=== PATIENT | male | born 1980 | race Caucasian/White ===

== ENCOUNTER 2017-06-18 14:42 | Inpatient (IN) | payer MEDICAID, OTHER ==
[~2017-06-18] VITALS: Ht 188 cm; Wt 159.0 kg
[2017-06-18] MEDS ORDERED: SOD CHLORIDE 0.9% 1,000 ML IV STA (15:48)
[2017-06-18] MEDS ORDERED: ASPIRIN 81 MG TAB PO STA (15:48)
[2017-06-18] MEDS ORDERED: AZITHROMYCIN 500MG/NS (PMX) 250 ML IV STA (16:00)
[2017-06-18] MEDS ORDERED: CEFTRIAXONE 1 GM/50 ML (PMX) 50 ML IVPB STA (16:00)
[2017-06-18] MEDS ORDERED: ALBUTEROL 0.5% (NEB) 2.5 MG/0.5 ML AMP NEB STA (16:00)
[2017-06-18] MEDS ORDERED: HYDROmorphONE 1 MG/ML SYG IV STA (16:07)
--- NOTE | 2017-06-18 16:15 | RADRPT ---
PROCEDURE: XR Chest. CLINICAL INDICATION: Chest pain. TECHNIQUE: Single frontal chest x-ray. COMPARISON: None available FINDINGS: The lungs are clear. No focal opacification is seen. No pneumothorax or pleural effusion is seen. The cardiomediastinal silhouette is unremarkable. Left PICC has its tip in the SVC. The osseous st ructures are grossly unremarkable. IMPRESSION: 1. No evidence of acute cardiopulmonary disease. 2. Left PICC tip in the superior vena cava. RPTAT: JJ .Ryan Arceo MD, MD Date Time Electronically viewed and signed by .Ryan Arceo MD, on 06/18/2017 16:14 .A/
[2017-06-18] MEDS ORDERED: ASPI-664 PO (16:36)
[2017-06-18] MEDS ORDERED: ATOR40TA68 PO (16:36)
[2017-06-18] MEDS ORDERED: HYDR4TAB51 PO (16:39)
[2017-06-18] MEDS ORDERED: WARF10TA PO (16:39)
[2017-06-18] MEDS: HYDROmorphONE 1 MG/ML SYG IV PRN ×5 (16:39→21:13)
[2017-06-18] MEDS ORDERED: FOLI-49 PO (16:40)
[2017-06-18] MEDS ORDERED: HYDR500C3 PO (16:40)
[2017-06-18] MEDS ORDERED: OXYC40TA26 PO (16:41)
[2017-06-18] MEDS ORDERED: CLOP75TA27 PO (16:41)
[2017-06-18] MEDS ORDERED: QUET400T PO (16:42)
[2017-06-18 16:43] VITALS: TEMP 99.2
[2017-06-18] MEDS ORDERED: ALBUTEROL 0.5% (NEB) 2.5 MG/0.5 ML AMP INH STA (17:47)
[2017-06-18] MEDS ORDERED: DIPHENHYDRAMINE 50 MG INJ IV ONE (18:30)
--- NOTE | 2017-06-18 19:11 | ERD ---
ER Documentation Chief Complaint Chief Complaint SICKLE CELL WITH JOINT PAIN, CP, RESP DISTRESS. HX STROKE, NC X 2, MUTPL PE HPI 37-year-old male with a history of sickle cell disease, stroke, NC, acute chest syndrome, and multiple pulmonary emboli presenting to the ER complaining of diffuse chest pain, joint pain, and shortness of breath. He states he is originally from the [facility] but was down here for his mother's . His symptoms have been progressively worsening over the past few days. About 3 or 4 days ago, he developed hematemesis, so his doctor told him to stop his anticoagulants and go to the hospital. He did not come until today. He denies fevers or chills. He denies any history of asthma or COPD. Patient does endorse a history of upper GI bleed secondary to gastric ulcers. He had to undergo a GI procedure for this and had to stop his anticoagulants at that time. This was less than a year ago. However in November he was restarted on his anticoagulants. Of note, the patient currently has a PICC line in place as he is on vancomycin for avascular necrosis and possible infection of his right hip. ROS All systems reviewed and are negative except as per history of present illness. Medications Home Meds Reported Medications Quetiapine Fumarate* (Seroquel*) 400 Mg Tablet, 400 MG PO BID, TAB 06/18/17 Clopidogrel Bisulfate (Clopidogrel) 75 Mg Tablet, 75 MG PO DAILY, #30 TAB 06/18/17 Oxycodone Hcl* (Oxycontin*) 40 Mg Tab.er.12h, 40 MG PO Q12, TAB 06/18/17 Hydroxyurea* (Hydroxyurea*) 500 Mg Capsule, 500 MG PO TID, CAP 06/18/17 Folic Acid* (Folic Acid*) 1 Mg Tablet, 1 MG PO DAILY, TAB 06/18/17 Warfarin Sodium* (Coumadin*) 10 Mg Tablet, 10 MG PO DAILY, TAB 06/18/17 Hydromorphone Hcl* (Dilaudid*) 4 Mg Tablet, 4 MG PO NEEDED Y for PAIN, TAB OR TAKE 8MG FOR PAIN 06/18/17 Aspirin* (Aspirin* EC) 81 Mg Tablet.dr, 81 MG PO DAILY, TAB 06/18/17 Atorvastatin* (Atorvastatin*) 40 Mg Tablet, 40 MG PO QHS, #30 TAB 06/18/17 Allergies Allergies: Coded Allergies: morphine (Verified Allergy, Severe, anaphalactic, 06/18/17) ketorolac (Verified Allergy, Intermediate, rash/swelling, 06/18/17) metoclopramide (Verified Allergy, Intermediate, rash, body swelling, ) Uncoded Allergies: ZOFRAN (Allergy, Intermediate, rash, body swelling, 06/18/17) PMhx/Soc History of Surgery: Yes (Pleenectomy, appendectomy, port-A-Cath, R hip replacement.) Anesthesia Reaction: No Hx Neurological Disorder: Yes (Stroke 2014-R sided weakness.) Hx Respiratory Disorders: Yes (multiple PE) Hx Cardiac Disorders: Yes (CAD-NC- Stent X2) Hx Psychiatric Problems: Yes (Bi-Polar, anxiety) Hx Miscellaneous Medical Probl: Yes (Sickle Cell disease.) Hx Alcohol Use: No Hx Substance Use: No Hx Tobacco Use: No Smoking Status: Never smoker FmHx Family History: No diabetes Physical Exam Vitals Vital Signs Date Time Temp Pulse Resp B/P Pulse Ox O2 Delivery O2 Flow Rate FiO2 06/18/17 18:01 113 18 Nasal Cannula 2.0 98 06/18/17 16:43 99.2 121 26 128/106 98 6.0 06/18/17 16:19 2.0 06/18/17 16:19 110 18 Nasal Cannula 2.0 98 06/18/17 14:46 99.2 117 28 191/104 98 Physical Exam Const: Speaking in short sentences, and respiratory distress, audible wheezing, no diaphoresis. Sitting up in bed Head: Atraumatic Eyes: Normal Conjunctiva ENT: Normal External Ears, Nose and Mouth. Neck: Full range of motion..~ No meningismus. No JVD Resp: tachypneic, diffuse expiratory wheezing Cardio: Regular rate and rhythm, no murmurs Abd: Soft, non tender, non distended. Normal bowel sounds Skin: No petechiae or rashes Back: No midline or flank tenderness Ext: No cyanosis, bilateral lower extremity pitting edema Neur: Awake and alert, oriented 3, cranial nerves intact, strength grossly intact Psych: Normal Mood and Affect Result Diagram: 06/18/17 1620 06/18/17 1620 Results 24 hrs Laboratory Tests Test 06/18/17 16:00 06/18/17 16:05 06/18/17 16:20 06/18/17 16:36 Blood Gas Specimen Source Blood arterial Arterial Blood Date Drawn 06/18/2017 4:50:23 PM Arterial Blood pH (Temp corrected) 7.439 Arterial Blood pCO2 (Temp correct) 43.4mmhg Arterial Blood pO2 (Temp corrected) 81.0mmHG Arterial Blood HCO3 28.7mmol/L Arterial Blood Base Excess 4.1mmol/L Arterial Blood Oxygen Saturation 95.6mmHG Rafiq Test ACCEPTAB Arterial Blood Gas Puncture Site Left Radial Arterial Blood Carboxyhemoglobin 0.3% Arterial Blood Methemoglobin 0.4% Blood Gas A-a O2 Differential 60.2mmHg Oxyhemoglobin Percent 94.9% Total Hemoglobin 10.0g/dl Blood Gas Temperature 37.0C Blood Gas Modality NASAL CANNULA FiO2 27.0% Blood Gas Notified Whom MDA Blood Gas Notified Time 06/18/2017 4:54:47 PM Lactic Acid Level 2.0mmol/L White Blood Count 7.810^3/ul Red Blood Count 3.1510^6/ul Hemoglobin 8.5g/dl Hematocrit 27.1% Mean Corpuscular Volume 86.0fl Mean Corpuscular Hemoglobin 27.0pg Mean Corpuscular Hemoglobin Concent 31.4g/dl Red Cell Distribution Width 17.9% Platelet Count 88062^3/UL Mean Platelet Volume 10.6fl Neutrophils % 68.8% Segmented Neutrophils % (Manual) 68% Lymphocytes % 14.9% Lymphocytes % (Manual) 15% Monocytes % 7.7% Monocytes % (Manual) 7% Eosinophils % 7.9% Eosinophils % (Manual) 9% Basophils % 0.1% Metamyelocytes % (manual) 1% Nucleated Red Blood Cells % 0.3/100WBC Neutrophils # 5.410^3/ul Absolute Lymphocytes (Manual) 1.110^3/ul Lymphocytes # 1.210^3/ul Monocytes # 0.610^3/ul Absolute Monocytes (Manual) 0.510^3/ul Eosinophils # 0.610^3/ul Basophils # 0.010^3/ul Metamyelocytes # 0.010^3/ul Nucleated Red Blood Cells # 0.010^3/ul Platelet Estimate NORMAL Platelet Morphology Comment @See below Polychromasia 1+ Hypochromasia 2+ Anisocytosis 1+ Macrocytosis 1+ Absolute Reticulocyte Count 0.093X10^6 Percent Reticulocyte Count 3.0% Prothrombin Time 15.5Sec Prothrombin Time Ratio 1.2 INR International Normalized Ratio 1.22 Activated Partial Thromboplast Time 30.9Sec Sodium Level 144mmol/L Potassium Level 4.1mmol/L Chloride Level 100mmol/L Carbon Dioxide Level 31mmol/L Anion Gap 17 Blood Urea Nitrogen 14mg/dl Creatinine 0.89mg/dl Glucose Level 122mg/dl Calcium Level 9.3mg/dl Total Bilirubin 0.3mg/dl Direct Bilirubin 0.00mg/dl Indirect Bilirubin 0.3mg/dl Aspartate Amino Transf (AST/SGOT) 25IU/L Alanine Aminotransferase (ALT/SGPT) 40IU/L Alkaline Phosphatase 85IU/L Troponin I < 0.012ng/ml B-Type Natriuretic Peptide 29PG/ML Total Protein 7.4g/dl Albumin 4.1g/dl Globulin 3.30g/dl Albumin/Globulin Ratio 1.24 Urine Color STRAW Urine Clarity CLEAR Urine pH 7.0 Urine Specific [place] 1.008 Urine Ketones NEGATIVEmg/dL Urine Nitrite NEGATIVEmg/dL Urine Bilirubin NEGATIVEmg/dL Urine Urobilinogen NEGATIVEmg/dL Urine Leukocyte Esterase NEGATIVELeu/ul Urine Hemoglobin NEGATIVEmg/dL Urine Glucose NEGATIVEmg/dL Urine Total Protein NEGATIVEmg/dl Test 06/18/17 18:10 Lactic Acid Level 1.8mmol/L Current Medications Medications (Trade) Dose Ordered Sig/Nader Route PRN Reason Start Time Stop Time Status Last Admin Dose Admin Sodium Chloride (NS) 1,000 ml @ 1,000 mls/hr Q1H STAT IV 06/18/17 15:48 06/18/17 16:47 DC 06/18/17 16:27 Aspirin 162 mg 162 mg ONCE STAT PO 06/18/17 15:48 06/18/17 15:51 DC 06/18/17 16:26 Ceftriaxone Sodium 50 ml @ 100 mls/hr ONCE STAT IVPB 06/18/17 16:00 06/18/17 16:29 DC 06/18/17 16:28 Azithromycin (Zithromax 500mg/ NS (Pmx)) 250 ml @ 250 mls/hr ONCE STAT IV 06/18/17 16:00 06/18/17 16:59 DC 06/18/17 16:58 Albuterol (Proventil 0.5% (Neb)) 10 mg ONCE STAT NEB 06/18/17 16:00 06/18/17 16:04 DC 06/18/17 16:14 Hydromorphone HCl (Dilaudid) 1 mg ONCE STAT IV 06/18/17 16:07 06/18/17 16:08 DC 06/18/17 16:27 Hydromorphone HCl (Dilaudid) 1 mg Q10MIN PRN IV severe pain 06/18/17 16:30 06/18/17 19:15 Albuterol (Proventil 0.5% (Neb)) 10 mg ONCE STAT INH 06/18/17 17:47 06/18/17 17:49 DC 06/18/17 17:59 Diphenhydramine HCl (Benadryl) 25 mg ONCE ONCE IV 06/18/17 18:30 06/18/17 18:31 DC 06/18/17 19:16 Ondansetron HCl (Zofran Inj) 4 mg ER BRIDGE PRN IV NAUSEA AND/OR VOMITING 06/18/17 19:30 06/19/17 19:29 Acetaminophen 650 mg 650 mg ER BRIDGE PRN PO MILD PAIN/FEVER 06/18/17 19:30 06/19/17 19:29 Sodium Chloride (NS) 250 ml @ 0 mls/hr Q0M ONCE IV 06/18/17 19:34 06/18/17 19:36 DC IV Flush 10 ml 10 ml STK-MED ONCE .ROUTE 06/18/17 19:54 06/18/17 19:55 DC 06/18/17 20:14 Sodium Chloride 100 ml @ ud STK-MED ONCE .ROUTE 06/18/17 19:54 06/18/17 19:55 DC 06/18/17 20:15 Iohexol (Omnipaque) 100 ml @ ud STK-MED ONCE .ROUTE 06/18/17 19:54 06/18/17 19:55 DC 06/18/17 20:16 Iohexol (Omnipaque 350mg/ ml) 50 ml STK-MED ONCE .ROUTE 06/18/17 19:54 06/18/17 19:55 DC 06/18/17 20:16 Procedures/MDM EKG: Rate/Rhythm: Sinus tachycardia at 115 bpm QRS, ST, T-waves: [place] Q waves, no changes consistent w/ acute ischemia Impression: No evidence of ischemia or arrhythmia Chest x-ray: IMPRESSION: 1. No evidence of acute cardiopulmonary disease. 2. Left PICC tip in the superior vena cava. RPTAT: JJ .Ryan Arceo MD, Date Time Electronically viewed and signed by .Ryan Arceo MD, on 06/18/2017 16:14 CTPA: pending Labs: CBC :anemia Hgb 8.5 Retic count high CMP unremarkable BNP wnl Trop wnl MDM Patient is presenting with symptoms consistent with acute sickle cell crisis. Vitals were notable for tachypnea and tachycardia when he arrived without any evidence of hypoxia. Sepsis workup was initiated however I have a low suspicion for acute infection. Chest x-ray does not show evidence of acute chest syndrome. EKG and troponin are not indicative of acute NC. However the patient has a significant history of pulmonary emboli and is not currently on anticoagulation secondary to his GI bleed. CTPA was ordered. Patient did not want to start anticoagulation until the results of the CT were back. Med-Neb treatments were given with significant improvement of his shortness of breath and wheezing. 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 He will likely also need another endoscopy with his recent history of hematemesis. Dose of IV Protonix was given. Patient will be admitted to telemetry for further workup and monitoring. Critical Care Time: 35 minutes Treatments/Evaluations: Close monitoring and treatment of unstable vital signs, cardiorespiratory, and neurologic status, while maintaining tight balance of fluid, respiratory, and cardiac interventions. This time includes discussing the case with the patient and the patients family. This time does not include all procedures stated elsewhere in this record. This time also includes reviewing old records, labs and radiological studies. This time includes examining and re-examining the patient. Additionally, this time also includes arranging care with admitting and consulting physicians. Accepting Care Team: Current data and ongoing care discussed. Time: Time of admission Primary Provider: Cam Outstanding Data: CT pulmonary angiogram Departure Diagnosis: Primary Impression: Sickle cell crisis Additional Impressions: Bronchospasm History of pulmonary embolism GI bleed GI bleed type/associated pathology: unspecified gastrointestinal hemorrhage type Qualified Code: K92.2 - Gastrointestinal hemorrhage, unspecified gastrointestinal hemorrhage type Condition: Serious YOLANDA ALVAREZ MD Jun 18, 2017 19:10
[2017-06-18] MEDS ORDERED: ONDANSETRON 4 MG INJ IV PRN ×2 (19:30→23:00)
[2017-06-18] MEDS ORDERED: ACETAMINOPHEN 325 MG TAB PO PRN ×2 (19:30→23:00)
[2017-06-18] MEDS ORDERED: SOD CHLORIDE 0.9% 250 ML IV ONE (19:34)
[2017-06-18] MEDS ORDERED: IOHEXOL 350MG/ML 50 ML BTL ONE (19:54)
[2017-06-18] MEDS ORDERED: SOD CHLORIDE 0.9% 100 ML ONE (19:54)
[2017-06-18] MEDS ORDERED: IOHEXOL 100 ML ONE (19:54)
[2017-06-18] MEDS ORDERED: HYDROmorphONE 2 MG/ML SYG IV STA (21:00)
[2017-06-18] MEDS ORDERED: PANTOPRAZOLE 40 MG INJ IV ONE (21:00)
--- NOTE | 2017-06-18 21:06 | RADRPT ---
PROCEDURE: CTA chest pulmonary angiography. CLINICAL INDICATION: Hemoptysis. Chest pain. TECHNIQUE: CT angiography of the chest was performed after the uneventful intravenous administratio n of 125 cc of Omnipaque 350. Coronal and sagittal reformations were performed. 3-D/multiplanar re formations were performed by the technologist and an independent workstation. The total exam CTDI = 7.07, 79.77, 24.31 mGy and the DLP equals 950.81 mGy-cm. Evaluation is markedly limited due to contr ast bolus timing. Evaluation is also partially limited due to the patient's body habitus and associa ricardo quantum mottle artifact. One or more of the following dose reduction techniques were used: - Automated exposure control. - Adjustment of the mA and/or kV according to patient size. - Use of iterative reconstruction technique. COMPARISON: Chest x-ray dated 06/18/2017. FINDINGS: Pulmonary angiogram: There is no large, centrally obstructing embolus. A more distal embolus is not excluded. The main pulmonary artery is normal in caliber and there is no evidence of right heart st rain. Lungs, pleura, airways, and thoracic inlet: There is nonspecific peripheral ground-glass opacity in the anterior right upper lobe. There is subsegmental atelectasis versus scarring in the lingula. Th ere is no focal consolidation, effusion, or pneumothorax. There are no concerning pulmonary nodules or masses. The tracheobronchial tree is patent and normal in course and caliber. Cardiovascular system, mediastinum, and lymphatics: The heart is normal in size without pericardial thickening or effusion. The aorta is nonaneurysmal. There is no hilar or mediastinal adenopathy. Visualized upper abdomen: There is diffuse fatty infiltration of the visualized liver. The gallblad neal is surgically absent. Musculoskeletal system and soft tissues: There are no concerning osseous lesions. There is a 2.3 c m focus of hyperdensity in the ventral right mid chest subcutaneous fat, which is nonspecific. IMPRESSION: 1. Markedly limited examination due to contrast bolus timing demonstrates no large, centrally obstr ucting embolus. A more distal embolus is not excluded. If clinical concern for PE remains, consider reevaluation versus VQ scan. 2. Nonspecific peripheral ground-glass opacity in the anterior right upper lobe, which given the pat ients symptoms, may reflect alveolar hemorrhage. Early infection or pulmonary infarct could also hav e this appearance. 3. Nonspecific 2.3 cm hyperdense focus in the ventral right mid chest subcutaneous fat. Clinical co rrelation is recommended. RPTAT: HLBP .Moisés Garcia MD, Date Time Electronically viewed and signed by .Moisés Garcia MD, on 06/18/2017 21:06 .P/
[2017-06-18] MEDS ORDERED: VANCOMYCIN 1.25 GM in SOD CHLORIDE 0.9% 250 ML IVPB SCH (23:00)
[2017-06-18] MEDS ORDERED: NACL 0.9% 3 ML SYG IV SCH (23:00)
[2017-06-18] MEDS ORDERED: VANCOMYCIN IV PER PHARMACY XX SCH (23:00)
[2017-06-18] MEDS ORDERED: BISACODYL (EC) 5 MG TAB PO PRN (23:00)
[2017-06-18] MEDS ORDERED: DOCUSATE SODIUM 100 MG CAP PO PRN (23:00)
[2017-06-18 23:44] VITALS: PULSE 101
--- NOTE | 2017-06-18 23:46 | HP ---
Date/Time of Note Date/Time of Note DATE: 06/18/17 TIME: 23:45 Assessment/Plan VTE Prophylaxis VTE Prophylaxis Intervention: contraindicated VTE Contraindication Reason: bleeding Lines/Catheters IV Catheter Type (from Nrsg): PICC Line Central line still needed: Yes (abx) Assessment/Plan Chief Complaint/Hosp Course This is a 37-year-old male being admitted to the telemetry floor for: #1 suspected sickle cell crisis: Patient does not appear to be actively sickling based on his blood work. However he does state that he has chest pain as well as joint pain and pain in his hip. He has been requesting Dilaudid in the ED for his pain. Based on his history at the current time I will treat him for suspected sickle cell crisis though I am not 100% convinced that he is in a crisis at this time.. Will put him on Dilaudid 2 mg every 2 hours. I put him on Benadryl for itching. I will also resume his home hydroxyurea. He was requesting a higher dose Dilaudid 3 mg which was on his hospital admission information from [facility] however at the current time I will start out lower and go up as indicated. Based on his respiratory symptoms I feel more likely that he may be having a possible respiratory illness possibly viral. however based on his history we will treat him also for possible sickle cell crisis. Will also put on IV fluid hydration with normal saline. His chest x- ray was within normal values. Lactate is currently in acceptable values. Will consult hematology as well as pulmonology. Will continue antibiotics at the current time secondary to his splenectomy as well as possible respiratory infection. #2 Chest pain: PE versus acute chest syndrome versus respiratory illness: At the current time a CT of the chest did not show any overt signs of central pulmonary emboli though the study was limited for distal emboli. He does not have any fevers at this time and is hemodynamically stable and are no signs of any focal infection or consolidation which make acute chest syndrome less likely at this time. Patient does report a cough productive of phlegm which could represent a possible respiratory illness. CT of the chest did show:n onspecific peripheral ground-glass opacity in the anterior right upper lobe, which given the patients symptoms, may reflect alveolar hemorrhage. Early infection or pulmonary infarct could also have this appearance. At the current time we will treat with duo nebs every 4 hours. I will also consult pulmonology for further evaluation especially in the setting of possible pulmonary infarct or alveolar hemorrhage. Of note on the CT scan of the chest there is no signs of right heart strain, making my suspicion less likely for PE. He did receive a dose of ceftriaxone and azithromycin and I will continue this for now given his history of splenectomy/sickle cell disease. 2D echo in the a.m. #3 hematemesis: Patient reports vomiting of bright red blood. At the current time his hemoglobin is 8.5 and on recheck it was 8.5 again. Will trend his hemoglobin every 6 hours. Will monitor him closely. I will put him on Protonix twice daily. Will consult GI. Patient did report a history of previous gastric ulcers. He is currently not on anticoagulation for the past few days secondary to his hematemesis. Will hold aspirin and Plavix at this time. #3 history of venous thromboembolism: Patient has a history of multiple DVTs and PEs. He was on anticoagulation of Coumadin at the current time however he did stop a few days ago secondary to hematemesis. Patient does present as a high risk for venous thrombus embolism however at the current time secondary to his hematemesis and no signs of any overt central PE on CAT scan I will hold off on continuing anticoagulation at this time. I will consult hematology for further assistance as well as pulmonology. Will also consult interventional radiology for possible IVC filter placement given patient's history. Also order bilateral lower extremity ultrasound. #4 sickle cell disease: Patient has a history of acute chest syndrome multiple DVTs in the past. Patient hemoglobin goal is reportedly above 9. At the current time is 8.5. 1 unit of packed red blood cells was ordered in the ED. Will continue to follow hemoglobin. Continue hydroxyurea. will consult hematology for further assistance #5 normocytic anemia: Secondary to #4. Will transfuse 1 unit PRBC #3 #6 coronary artery disease: Patient is status post NH 2 however he does not report any stent placement. He is currently on Plavix as well. I will hold the Plavix at this time. Will consult cardiology as well for further guidance. #7 Bipolar disorder: Continue Seroquel #8 history of avascular necrosis of the right hip: Patient reports that he has been taking vancomycin as he developed an infection of the hardware in his right hip that was placed after he had avascular necrosis. Will try to obtain records regarding this. He states that he is on 1250 mg of vancomycin twice daily for approximately 6 weeks. I will start him on vancomycin pharmacy to dose. Will consult ID for further assistance in this matter. Will also obtain x-ray of his right hip. And will consider an orthopedic consult. #9 chronic left lower extremity edema: Patient has mild trace to 1+ pitting edema of the left lower extremity. Will obtain an echocardiogram. Patient states that he has had issues with this for quite some time now secondary to DVTs. Will order bilateral lower extremity ultrasound as well. #10 DVT GI prolapse: Currently mechanical and chemical prophylaxis is contraindicated secondary to patient's bleeding as well as possible lower extremity DVTs. Will order bilateral lower extremity ultrasound to rule out DVTs once a rule out and we can start on mechanical DVT prophylaxis. Protonix for GI prophylaxis. Further treatment strategy will be implemented as per the clinical course Problems: HPI/ROS Admit Date/Time Admit Date/Time Jun 18, 2017 at 19:31 Hx of Present Illness cc: chest pain 37-year-old male with a history of sickle cell disease, stroke, NH, acute chest syndrome, and multiple pulmonary emboli presenting to the ER complaining of diffuse chest pain, joint pain, and shortness of breath as well as a cough. Patient states that his cough has been productive of green phlegm. He states he is originally from the [place] area but was down here for his mother's . His symptoms have been progressively worsening over the past few days. About 3 or 4 days ago, he developed hematemesis, so his doctor told him to stop his anticoagulants and go to the hospital. His last episode of hematemesis was earlier today. He did not come until today. He denies fevers or chills. He denies any history of asthma or COPD. Patient does endorse a history of upper GI bleed secondary to gastric ulcers. He had to undergo a GI procedure for this and had to stop his anticoagulants at that time. This was less than a year ago. However in November he was restarted on his anticoagulants. Patient also is very insistent on receiving Dilaudid and he was showing me orders from his previous admission at [facility] in December 2016 specifically requesting Dilaudid and Benadryl. He also reports some chronic left lower extremity swelling. He reports that for his hemoglobin the goal for him is to stay between 9 and 10. Of note, the patient currently has a PICC line in place as he is on vancomycin for avascular necrosis and possible infection of his right hip. He states he is receiving 1250 mg twice daily. allergies: zofran, ketorolac, reglan, morphine Medications: See MAR ROS Const: As per HPI Eyes : No pain discharge or redness or change in visual acuity ENT: No pain, sore throat, congestion, congestion, dysphagia or discharge Respiratory: As per HPI Cardiovascular: As per HPI GI : no change in appetite, abdominal pain, nausea, vomiting, diarrhea, constipation, or change in the color his stool Genitourinary: No dysuria, hematuria, flank pain , discharge or CVA tenderness Musculoskeletal: No joint pain, back pain, neck pain, restricted range of motion in neck or joints Skin: As per HPI Neuro: No headache, dizziness, syncope, seizure, focal weakness Endocrine: No polyuria, polydipsia, temperature intolerance Psych: No hallucination, depression, anxiety or suicidal ideation PMH/Family/Social Past Medical History Sickle cell disease, NH 2, history of PEs, history of DVTs, bipolar disorder, avascular necrosis of the right hip status post infection of hardware currently on antibiotics Past Surgical History Splenectomy, appendectomy, right hip surgery for avascular necrosis Family History Significant Family History: no pertinent family hx Social History Alcohol Use: none Smoking Status: Never smoker Drug Use: none Exam/Review of Systems Vital Signs Vitals Vital Signs Date Time Temp Pulse Resp B/P Pulse Ox O2 Delivery O2 Flow Rate FiO2 06/18/17 22:48 109 16 147/96 97 6.0 06/18/17 18:01 Nasal Cannula 98 06/18/17 16:43 99.2 Exam Exam General: Patient is an obese male sitting on the wheelchair in mild respiratory distress HEENT: Atraumatic, normocephalic. The pupils are equal, round and reactive. Extraocular motor are intact Neck: Supple with full range of motion. No rigidity or meningismus Chest: Nontender Lungs: Bilateral coarse breath sounds with mild expiratory wheezing, cough currently not productive Heart: Normal S1-S2, Regular rhythm and rate. Abdomen: Soft , nontender, nondistended , bowel sounds are present. No guarding no rebound tenderness , No masses or organomegaly. No costovertebral temporal angle mass Extremities: Tenderness to the right lateral hip, no warmth. Patient is currently in a wheelchair. Neurologic: Normal mental status, speech normal, cranial nerves II through XII are intact, motor and sensory are intact, no focal weakness Additional Comments PROCEDURE: CTA chest pulmonary angiography. CLINICAL INDICATION: Hemoptysis. Chest pain. TECHNIQUE: CT angiography of the chest was performed after the uneventful intravenous administration of 125 cc of Omnipaque 350. Coronal and sagittal reformations were performed. 3-D/multiplanar reformations were performed by the technologist and an independent workstation. The total exam CTDI = 7.07, 79.77, 24.31 mGy and the DLP equals 950.81 mGy-cm. Evaluation is markedly limited due to contrast bolus timing. Evaluation is also partially limited due to the patient's body habitus and associated quantum mottle artifact. One or more of the following dose reduction techniques were used: - Automated exposure control. - Adjustment of the mA and/or kV according to patient size. - Use of iterative reconstruction technique. COMPARISON: Chest x-ray dated 06/18/2017. FINDINGS: Pulmonary angiogram: There is no large, centrally obstructing embolus. A more distal embolus is not excluded. The main pulmonary artery is normal in caliber and there is no evidence of right heart strain. Lungs, pleura, airways, and thoracic inlet: There is nonspecific peripheral ground-glass opacity in the anterior right upper lobe. There is subsegmental atelectasis versus scarring in the lingula. There is no focal consolidation, effusion, or pneumothorax. There are no concerning pulmonary nodules or masses. The tracheobronchial tree is patent and normal in course and caliber. Cardiovascular system, mediastinum, and lymphatics: The heart is normal in size without pericardial thickening or effusion. The aorta is nonaneurysmal. There is no hilar or mediastinal adenopathy. Visualized upper abdomen: There is diffuse fatty infiltration of the visualized liver. The gallbladder is surgically absent. Musculoskeletal system and soft tissues: There are no concerning osseous lesions. There is a 2.3 cm focus of hyperdensity in the ventral right mid chest subcutaneous fat, which is nonspecific. IMPRESSION: 1. Markedly limited examination due to contrast bolus timing demonstrates no large, centrally obstructing embolus. A more distal embolus is not excluded. If clinical concern for PE remains, consider reevaluation versus VQ scan. 2. Nonspecific peripheral ground-glass opacity in the anterior right upper lobe , which given the patients symptoms, may reflect alveolar hemorrhage. Early infection or pulmonary infarct could also have this appearance. 3. Nonspecific 2.3 cm hyperdense focus in the ventral right mid chest subcutaneous fat. Clinical correlation is recommended. RPTAT: HLBP .Moisés Garcia MD, MD Date Time Electronically viewed and signed by .Moisés Garcia MD, MD on 06/18/2017 21:06 .P/ CC: YOLANDA ALVAREZ MD PROCEDURE: XR Chest. CLINICAL INDICATION: Chest pain. TECHNIQUE: Single frontal chest x-ray. COMPARISON: None available FINDINGS: The lungs are clear. No focal opacification is seen. No pneumothorax or pleural effusion is seen. The cardiomediastinal silhouette is unremarkable. Left PICC has its tip in the SVC. The osseous structures are grossly unremarkable. IMPRESSION: 1. No evidence of acute cardiopulmonary disease. 2. Left PICC tip in the superior vena cava. RPTAT: JJ .Ryan Arceo MD, MD Date Time Electronically viewed and signed by .Ryan Arceo MD, MD on 06/18/2017 16:14 .A/ CC: YOLANDA ALVAREZ MD Labs Result Diagram: 06/18/17 1620 06/18/17 1620 Medications Medications Current Medications Ondansetron HCl (Zofran Inj) 4 mg Q6H PRN IV NAUSEA AND/OR VOMITING; Start 06/18/17 at 23:00 Acetaminophen (Tylenol Tab) 650 mg Q6H PRN PO PAIN LEVEL 1-3 OR FEVER; Start 06/18/17 at 23:00 Hydromorphone HCl (Dilaudid) 2 mg Q2H PRN IV PAIN LEVEL 7-10; Start 06/18/17 at 23:00 Docusate Sodium (Colace) 100 mg Q12H PRN PO CONSTIPATION; Start 06/18/17 at 23: 00 Bisacodyl (Dulcolax) 5 mg DAILY PRN PO CONSTIPATION; Start 06/18/17 at 23:00 Pantoprazole (Protonix Iv) 40 mg BID@06,18 IV ; Start 06/18/17 at 23:00 Vancomycin HCl PER PHARMACY DOSING NOTE XX ; Start 06/18/17 at 23:00 Vancomycin HCl/ Sodium Chloride (Vancocin/NS) 250 ml @ 83.333 mls/ hr Q12H IVPB ; Start 06/18/17 at 23:00 Hydromorphone HCl (Dilaudid) 1 mg Q2H PRN IV severe pain ; Start 06/19/17 at 01 :00 Folic Acid (Folic Acid) 1 mg DAILY PO ; Start 06/19/17 at 09:00; Status UNV Hydroxyurea (Hydrea) 500 mg TID PO ; Start 06/19/17 at 09:00; Status UNV Quetiapine Fumarate (Seroquel) 400 mg BID PO ; Start 06/19/17 at 09:00; Status UNV Diphenhydramine HCl 50 mg 50 mg Q6H PRN IM ITCHING; Start 06/19/17 at 00:00; Status UNV Sodium Chloride (NS) 1,000 ml @ 125 mls/hr Q8H IV ; Start 06/19/17 at 00:00; Status UNV EV CARPIO Jun 18, 2017 23:46
[2017-06-19] VITALS (12 sets, daily range): BP systolic 118–147; BP diastolic 57–94; PULSE 95–105; RESP 18–20; Ht 188 cm; Wt 159.0 kg
[2017-06-19] MEDS ORDERED: SOD CHLORIDE 0.9% 1,000 ML IV SCH
[2017-06-19] MEDS: DIPHENHYDRAMINE 50 MG INJ IM PRN ×3 (00:59→15:14)
[2017-06-19] MEDS: HYDROmorphONE 2 MG/ML SYG IV PRN ×12 (00:59→23:28)
[2017-06-19] MEDS ORDERED: HYDROmorphONE 1 MG/ML SYG IV PRN (01:00)
[2017-06-19] MEDS: ALBUTEROL/IPRATROPIUM (NEB) 3 ML AMP HHN SCH ×6 (01:00→21:32)
[2017-06-19] MEDS: PANTOPRAZOLE 40 MG INJ IV SCH ×2 (01:04→05:08)
[2017-06-19] MEDS ORDERED: DIPHENHYDRAMINE 50 MG INJ IV PRN (01:30)
[2017-06-19] MEDS ORDERED: AZITHROMYCIN 500MG/NS (PMX) 250 ML IVPB SCH ×2 (06:00→16:00)
[2017-06-19] MEDS ORDERED: CEFTRIAXONE 1 GM/50 ML (PMX) 50 ML IVPB SCH ×2 (07:00→17:00)
[2017-06-19] MEDS: FOLIC ACID 1 MG TAB PO SCH (09:00)
[2017-06-19] MEDS: HYDROXYUREA 500 MG CAP PO SCH ×3 (09:00→19:48)
[2017-06-19] MEDS ORDERED: DIPHENHYDRAMINE 50 MG CAP PO PRN ×2 (09:00→19:00)
[2017-06-19] MEDS: QUETIAPINE 100 MG TAB PO SCH ×2 (09:04→19:49)
--- NOTE | 2017-06-19 10:03 | RADRPT ---
PROCEDURE: US bilateral lower extremity veins. CLINICAL INDICATION: Bilateral leg pain and swelling. TECHNIQUE: Multiple longitudinal and transverse images of the bilateral lower extremity veins were obtained with ibanez scale and color Doppler imaging. The common femoral vein, femoral vein, and popl iteal vein were evaluated. 2D grayscale measurements with compression sonography, color Doppler, and pulsed Doppler with augmentation. COMPARISON: No prior studies are available for comparison. FINDINGS: The bilateral common femoral, femoral and popliteal veins are normally compressible throughout. Col or flow demonstrates normal filling of the vessels. Normal waveforms are visualized and there is no rmal response to augmentation. IMPRESSION: 1. No evidence of deep vein thrombosis involving either lower extremity. RPTAT: QQ .Robert Greene MD, MD Date Time Electronically viewed and signed by .Robert Greene MD, on 06/19/2017 10:03 .R/
[2017-06-19] MEDS: SOD CHLORIDE 0.45% 1,000 ML IV SCH ×2 (10:30→18:30)
--- NOTE | 2017-06-19 11:38 | CONS ---
Date/Time of Note Date/Time of Note DATE: 06/19/17 TIME: 11:35 Assessment/Plan Assessment/Plan Additional Assessment/Plan Chest x-ray was reviewed which is essentially unremarkable. CT chest with contrast also is essentially negative. Assessment and recommendations; 1. Patient admitted with nonspecific chest pain with interval resolution. Possibly some element of sickle cell crisis. 2. Currently no evidence of any infective process. Discontinue antibiotics. Continue IV hydration. Monitor hematocrit. Consultation Date/Type/Reason Admit Date/Time Jun 18, 2017 at 19:31 Date of Consultation: Jun 19, 2017 Type of Consultation: Pulmonary Reason for Consultation Pulmonary consultation requested for evaluation of chest pain. History of presenting illness; patient is a 37-year-old male who came into the emergency room with complaints of chest pain going on for the last day or so. The pain is brought on by certain movements and coughing. Patient denies any abdominal pain, nausea vomiting or diaphoresis. Also denies any wheezing or any sputum production. Denies any hemoptysis. By the time I saw the patient the patient is feeling much better with almost complete resolution of chest pain. Next Past medical history; 1. Patient with history of sickle cell disease. 2. History of recurrent lower extremity DVT and history of pulmonary embolism. 3. History of chronic lower extremity edema. 4. History of right hip avascular necrosis. Medications; reviewed. Allergies; or to multiple medications as outlined above. Social history; patient has never smoked. No history of drug abuse. Family history; noncontributory. Occupational history; patient is on disability. General exam; young male, awake alert, currently in no distress. Appears morbidly obese. Social History Alcohol Use: none Smoking Status: Former smoker Drug Use: none Exam/Review of Systems Vital Signs Vitals Vital Signs Date Time Temp Pulse Resp B/P Pulse Ox O2 Delivery O2 Flow Rate FiO2 06/19/17 08:15 95 06/19/17 07:41 98.1 19 122/57 94 06/18/17 22:48 6.0 06/18/17 18:01 Nasal Cannula 98 Intake and Output 06/18/17 06/18/17 06/19/17 15:00 23:00 07:00 Intake Total 1425 ml Output Total 1600 ml Balance -175 ml Exam HEENT exam; supple neck, no JVD. No lymphadenopathy. Midline trachea. No thyromegaly. Pharynx is clear. Pupils are midsize and reactive to light. Chest exam; clear to auscultation. Nontender. S1-S2 audible, no murmurs. Regular rhythm. Abdomen exam; soft, grossly protuberant. No organomegaly. Bowel sounds audible. Nontender. Extremity exam; chronic appearing bilateral lower extremity 1+ edema. No clubbing. 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 Results Result Diagram: 06/19/17 0800 06/19/17 0800 Results 24 hrs Laboratory Tests Test 06/18/17 16:00 06/18/17 16:05 06/18/17 16:20 06/18/17 16:36 Blood Gas Specimen Source Blood arterial Arterial Blood Date Drawn 06/18/2017 4:50:23 PM Arterial Blood pH (Temp corrected) 7.439 Arterial Blood pCO2 (Temp correct) 43.4 Arterial Blood pO2 (Temp corrected) 81.0 Arterial Blood HCO3 28.7 H Arterial Blood Base Excess 4.1 H Arterial Blood Oxygen Saturation 95.6 Rafiq Test ACCEPTAB Arterial Blood Gas Puncture Site Left Radial Arterial Blood Carboxyhemoglobin 0.3 Arterial Blood Methemoglobin 0.4 Blood Gas A-a O2 Differential 60.2 H Oxyhemoglobin Percent 94.9 Total Hemoglobin 10.0 L Blood Gas Temperature 37.0 Blood Gas Modality NASAL CANNULA FiO2 27.0 Blood Gas Notified Whom MDA Blood Gas Notified Time 06/18/2017 4:54:47 PM Lactic Acid Level 2.0 White Blood Count 7.8 Red Blood Count 3.15 L Hemoglobin 8.5 L Hematocrit 27.1 L Mean Corpuscular Volume 86.0 Mean Corpuscular Hemoglobin 27.0 L Mean Corpuscular Hemoglobin Concent 31.4 L Red Cell Distribution Width 17.9 H Platelet Count 265 Mean Platelet Volume 10.6 H Neutrophils % 68.8 Segmented Neutrophils % (Manual) 68 Lymphocytes % 14.9 L Lymphocytes % (Manual) 15 Monocytes % 7.7 Monocytes % (Manual) 7 Eosinophils % 7.9 H Eosinophils % (Manual) 9 H Basophils % 0.1 Metamyelocytes % (manual) 1 H Nucleated Red Blood Cells % 0.3 H Neutrophils # 5.4 Absolute Lymphocytes (Manual) 1.1 Lymphocytes # 1.2 Monocytes # 0.6 Absolute Monocytes (Manual) 0.5 Eosinophils # 0.6 H Basophils # 0.0 Metamyelocytes # 0.0 Nucleated Red Blood Cells # 0.0 Platelet Estimate NORMAL Platelet Morphology Comment @See below Polychromasia 1+ Hypochromasia 2+ Anisocytosis 1+ Macrocytosis 1+ Absolute Reticulocyte Count 0.093 Percent Reticulocyte Count 3.0 H Prothrombin Time 15.5 H Prothrombin Time Ratio 1.2 INR International Normalized Ratio 1.22 Activated Partial Thromboplast Time 30.9 Sodium Level 144 Potassium Level 4.1 Chloride Level 100 Carbon Dioxide Level 31 Anion Gap 17 H Blood Urea Nitrogen 14 Creatinine 0.89 Glucose Level 122 Calcium Level 9.3 Total Bilirubin 0.3 Direct Bilirubin 0.00 Indirect Bilirubin 0.3 Aspartate Amino Transf (AST/SGOT) 25 Alanine Aminotransferase (ALT/SGPT) 40 Alkaline Phosphatase 85 Troponin I < 0.012 B-Type Natriuretic Peptide 29 Total Protein 7.4 Albumin 4.1 Globulin 3.30 H Albumin/Globulin Ratio 1.24 Urine Color STRAW Urine Clarity CLEAR Urine pH 7.0 Urine Specific [place] 1.008 Urine Ketones NEGATIVE Urine Nitrite NEGATIVE Urine Bilirubin NEGATIVE Urine Urobilinogen NEGATIVE Urine Leukocyte Esterase NEGATIVE Urine Hemoglobin NEGATIVE Urine Glucose NEGATIVE Urine Total Protein NEGATIVE Test 06/18/17 18:10 06/19/17 01:04 06/19/17 07:25 06/19/17 08:00 Lactic Acid Level 1.8 2.0 White Blood Count 7.9 5.9 # Red Blood Count 3.18 L 2.99 L Hemoglobin 8.5 L 7.8 L Hematocrit 27.0 L 25.3 L Mean Corpuscular Volume 84.9 84.6 Mean Corpuscular Hemoglobin 26.7 L 26.1 L Mean Corpuscular Hemoglobin Concent 31.5 L 30.8 L Red Cell Distribution Width 18.0 H 18.1 H Platelet Count 268 231 Mean Platelet Volume 11.4 H 11.9 H Neutrophils % 68.3 64.2 Lymphocytes % 16.4 17.0 Monocytes % 7.7 8.8 Eosinophils % 7.1 H 9.3 H Basophils % 0.1 0.2 Nucleated Red Blood Cells % 0.3 H 0.0 Neutrophils # 5.4 3.8 Lymphocytes # 1.3 1.0 Monocytes # 0.6 0.5 Eosinophils # 0.6 H 0.6 H Basophils # 0.0 0.0 Nucleated Red Blood Cells # 0.0 0.0 Creatine Kinase 789 H 708 H Creatine Kinase Index 0.4 0.4 Creatinine Kinase MB (Mass) 3.31 H 2.51 H Troponin I < 0.012 < 0.012 Urine Opiates Screen Positive Urine Barbiturates Negative Urine Amphetamines Screen Negative Urine Benzodiazepines Screen Positive Urine Cocaine Screen Negative Urine Cannabinoids Negative Sodium Level 141 Potassium Level 4.3 Chloride Level 101 Carbon Dioxide Level 28 Anion Gap 16 Blood Urea Nitrogen 13 Creatinine 0.83 Glucose Level 119 Hemoglobin A1c 6.2 H Calcium Level 8.6 Magnesium Level 1.9 Total Bilirubin 0.3 Direct Bilirubin 0.00 Indirect Bilirubin 0.3 Aspartate Amino Transf (AST/SGOT) 26 Alanine Aminotransferase (ALT/SGPT) 34 Alkaline Phosphatase 73 Total Protein 6.7 Albumin 3.7 Globulin 3.00 Albumin/Globulin Ratio 1.23 Thyroid Stimulating Hormone (TSH) Pending Medications Medications Current Medications Ondansetron HCl (Zofran Inj) 4 mg Q6H PRN IV NAUSEA AND/OR VOMITING; Start 06/18/17 at 23:00 Acetaminophen (Tylenol Tab) 650 mg Q6H PRN PO PAIN LEVEL 1-3 OR FEVER; Start 06/18/17 at 23:00 Docusate Sodium (Colace) 100 mg Q12H PRN PO CONSTIPATION; Start 06/18/17 at 23: 00 Bisacodyl (Dulcolax) 5 mg DAILY PRN PO CONSTIPATION; Start 06/18/17 at 23:00 Pantoprazole (Protonix Iv) 40 mg BID@06,18 IV Last administered on 06/19/17 05 :08; Admin Dose 40 MG; Start 06/18/17 at 23:00 Vancomycin HCl PER PHARMACY DOSING NOTE XX ; Start 06/18/17 at 23:00 Vancomycin HCl/ Sodium Chloride (Vancocin/NS) 250 ml @ 83.333 mls/ hr Q12H IVPB Last administered on 06/19/17 01:05; Admin Dose 83.333 MLS/HR; Start 06/18/17 at 23:00 Hydromorphone HCl (Dilaudid) 1 mg Q2H PRN IV severe pain ; Start 06/19/17 at 01 :00 Folic Acid (Folic Acid) 1 mg DAILY PO ; Start 06/19/17 at 09:00 Hydroxyurea (Hydrea) 500 mg TID PO ; Start 06/19/17 at 09:00 Quetiapine Fumarate (Seroquel) 400 mg BID PO Last administered on 06/19/17 09: 04; Admin Dose 400 MG; Start 06/19/17 at 09:00 Diphenhydramine HCl 50 mg 50 mg Q6H PRN IM ITCHING Last administered on 08:53; Admin Dose 50 MG; Start 06/19/17 at 00:00 Ceftriaxone Sodium (Rocephin) 50 ml @ 100 mls/hr Q24H IVPB ; Start 06/19/17 at 17:00 Diphenhydramine HCl 50 mg 50 mg Q6H PRN PO ITCHING; Start 06/19/17 at 09:00 Sodium Chloride (1/2 NS) 1,000 ml @ 125 mls/hr Q8H IV ; Start 06/19/17 at 10:30 Hydromorphone HCl (Dilaudid) 4 mg Q2H PRN IV PAIN LEVEL 7-10; Start 06/19/17 at 11:00 Azithromycin (Zithromax) 500 mg DAILY PO ; Start 06/19/17 at 12:00 JENNY DIOR Jun 19, 2017 11:38
[2017-06-19] MEDS ORDERED: AZITHROMYCIN 250 MG TAB PO SCH (12:00)
[2017-06-19] MEDS ORDERED: VANCOMYCIN IV PER PHARMACY XX SCH (12:30)
--- NOTE | 2017-06-19 12:30 | PN ---
Date/Time of Note Date/Time of Note DATE: 06/19/17 TIME: 12:01 Assessment/Plan VTE Prophylaxis VTE Prophylaxis Intervention: SCD's Lines/Catheters IV Catheter Type (from Nrsg): PICC Line Central line still needed: Yes Urinary Cath still in place: No Assessment/Plan Assessment/Plan 37 yo M with sickle cell presents with joint pains and SOB. Also diagnosed with hip AVN ~3 weeks ago and was told he needed 6-8 weeks of IV vanc #SOB: most likely URI -RVP -supportive care #hip AVN with ?infection: cont vanc -osh records requested #sickle cell with acute pain crisis -IVFs, pain meds -cont home hydroxurea -transfusions as per heme #hematemesis: GI eval pending -empiric BID PPI pending EGD #h/o DVTs/PEs warranting lifelong ATC -no current DVT/PE on imaging -await GI eval before resuming ATC Subjective 24 Hr Interval Summary Free Text/Dictation Pt still feels quite wheezy. Normal pain crisis pain regimen is Dilaudid 4 mg q 2 hours Exam/Review of Systems Vital Signs Vitals Vital Signs Date Time Temp Pulse Resp B/P Pulse Ox O2 Delivery O2 Flow Rate FiO2 06/19/17 11:50 97.4 107 19 147/62 94 06/18/17 22:48 6.0 06/18/17 18:01 Nasal Cannula 98 Intake and Output 06/18/17 06/18/17 06/19/17 15:00 23:00 07:00 Intake Total 1425 ml Output Total 1600 ml Balance -175 ml Exam nad wheezy in all lung rowell abd soft no rashes no edema +PICC line in place Results Result Diagram: 06/19/17 0800 06/19/17 0800 Results 24 hrs Laboratory Tests Test 06/18/17 16:00 06/18/17 16:05 06/18/17 16:20 06/18/17 16:36 Blood Gas Specimen Source Blood arterial Arterial Blood Date Drawn 06/18/2017 4:50:23 PM Arterial Blood pH (Temp corrected) 7.439 Arterial Blood pCO2 (Temp correct) 43.4 Arterial Blood pO2 (Temp corrected) 81.0 Arterial Blood HCO3 28.7 H Arterial Blood Base Excess 4.1 H Arterial Blood Oxygen Saturation 95.6 Rafiq Test ACCEPTAB Arterial Blood Gas Puncture Site Left Radial Arterial Blood Carboxyhemoglobin 0.3 Arterial Blood Methemoglobin 0.4 Blood Gas A-a O2 Differential 60.2 H Oxyhemoglobin Percent 94.9 Total Hemoglobin 10.0 L Blood Gas Temperature 37.0 Blood Gas Modality NASAL CANNULA FiO2 27.0 Blood Gas Notified Whom MDA Blood Gas Notified Time 06/18/2017 4:54:47 PM Lactic Acid Level 2.0 White Blood Count 7.8 Red Blood Count 3.15 L Hemoglobin 8.5 L Hematocrit 27.1 L Mean Corpuscular Volume 86.0 Mean Corpuscular Hemoglobin 27.0 L Mean Corpuscular Hemoglobin Concent 31.4 L Red Cell Distribution Width 17.9 H Platelet Count 265 Mean Platelet Volume 10.6 H Neutrophils % 68.8 Segmented Neutrophils % (Manual) 68 Lymphocytes % 14.9 L Lymphocytes % (Manual) 15 Monocytes % 7.7 Monocytes % (Manual) 7 Eosinophils % 7.9 H Eosinophils % (Manual) 9 H Basophils % 0.1 Metamyelocytes % (manual) 1 H Nucleated Red Blood Cells % 0.3 H Neutrophils # 5.4 Absolute Lymphocytes (Manual) 1.1 Lymphocytes # 1.2 Monocytes # 0.6 Absolute Monocytes (Manual) 0.5 Eosinophils # 0.6 H Basophils # 0.0 Metamyelocytes # 0.0 Nucleated Red Blood Cells # 0.0 Platelet Estimate NORMAL Platelet Morphology Comment @See below Polychromasia 1+ Hypochromasia 2+ Anisocytosis 1+ Macrocytosis 1+ Absolute Reticulocyte Count 0.093 Percent Reticulocyte Count 3.0 H Prothrombin Time 15.5 H Prothrombin Time Ratio 1.2 INR International Normalized Ratio 1.22 Activated Partial Thromboplast Time 30.9 Sodium Level 144 Potassium Level 4.1 Chloride Level 100 Carbon Dioxide Level 31 Anion Gap 17 H Blood Urea Nitrogen 14 Creatinine 0.89 Glucose Level 122 Calcium Level 9.3 Total Bilirubin 0.3 Direct Bilirubin 0.00 Indirect Bilirubin 0.3 Aspartate Amino Transf (AST/SGOT) 25 Alanine Aminotransferase (ALT/SGPT) 40 Alkaline Phosphatase 85 Troponin I < 0.012 B-Type Natriuretic Peptide 29 Total Protein 7.4 Albumin 4.1 Globulin 3.30 H Albumin/Globulin Ratio 1.24 Urine Color STRAW Urine Clarity CLEAR Urine pH 7.0 Urine Specific [place] 1.008 Urine Ketones NEGATIVE Urine Nitrite NEGATIVE Urine Bilirubin NEGATIVE Urine Urobilinogen NEGATIVE Urine Leukocyte Esterase NEGATIVE Urine Hemoglobin NEGATIVE Urine Glucose NEGATIVE Urine Total Protein NEGATIVE Test 06/18/17 18:10 06/19/17 01:04 06/19/17 07:25 06/19/17 08:00 Lactic Acid Level 1.8 2.0 White Blood Count 7.9 5.9 # Red Blood Count 3.18 L 2.99 L Hemoglobin 8.5 L 7.8 L Hematocrit 27.0 L 25.3 L Mean Corpuscular Volume 84.9 84.6 Mean Corpuscular Hemoglobin 26.7 L 26.1 L Mean Corpuscular Hemoglobin Concent 31.5 L 30.8 L Red Cell Distribution Width 18.0 H 18.1 H Platelet Count 268 231 Mean Platelet Volume 11.4 H 11.9 H Neutrophils % 68.3 64.2 Lymphocytes % 16.4 17.0 Monocytes % 7.7 8.8 Eosinophils % 7.1 H 9.3 H Basophils % 0.1 0.2 Nucleated Red Blood Cells % 0.3 H 0.0 Neutrophils # 5.4 3.8 Lymphocytes # 1.3 1.0 Monocytes # 0.6 0.5 Eosinophils # 0.6 H 0.6 H Basophils # 0.0 0.0 Nucleated Red Blood Cells # 0.0 0.0 Creatine Kinase 789 H 708 H Creatine Kinase Index 0.4 0.4 Creatinine Kinase MB (Mass) 3.31 H 2.51 H Troponin I < 0.012 < 0.012 Urine Opiates Screen Positive Urine Barbiturates Negative Urine Amphetamines Screen Negative Urine Benzodiazepines Screen Positive Urine Cocaine Screen Negative Urine Cannabinoids Negative Sodium Level 141 Potassium Level 4.3 Chloride Level 101 Carbon Dioxide Level 28 Anion Gap 16 Blood Urea Nitrogen 13 Creatinine 0.83 Glucose Level 119 Hemoglobin A1c 6.2 H Calcium Level 8.6 Magnesium Level 1.9 Total Bilirubin 0.3 Direct Bilirubin 0.00 Indirect Bilirubin 0.3 Aspartate Amino Transf (AST/SGOT) 26 Alanine Aminotransferase (ALT/SGPT) 34 Alkaline Phosphatase 73 Total Protein 6.7 Albumin 3.7 Globulin 3.00 Albumin/Globulin Ratio 1.23 Thyroid Stimulating Hormone (TSH) Pending Medications Medications Current Medications Ondansetron HCl (Zofran Inj) 4 mg Q6H PRN IV NAUSEA AND/OR VOMITING; Start 06/18/17 at 23:00 Acetaminophen (Tylenol Tab) 650 mg Q6H PRN PO PAIN LEVEL 1-3 OR FEVER; Start 06/18/17 at 23:00 Docusate Sodium (Colace) 100 mg Q12H PRN PO CONSTIPATION; Start 06/18/17 at 23: 00 Bisacodyl (Dulcolax) 5 mg DAILY PRN PO CONSTIPATION; Start 06/18/17 at 23:00 Pantoprazole (Protonix Iv) 40 mg BID@06,18 IV Last administered on 06/19/17 05 :08; Admin Dose 40 MG; Start 06/18/17 at 23:00 Hydromorphone HCl (Dilaudid) 1 mg Q2H PRN IV severe pain ; Start 06/19/17 at 01 :00 Folic Acid (Folic Acid) 1 mg DAILY PO ; Start 06/19/17 at 09:00 Hydroxyurea (Hydrea) 500 mg TID PO ; Start 06/19/17 at 09:00 Quetiapine Fumarate (Seroquel) 400 mg BID PO Last administered on 06/19/17 09: 04; Admin Dose 400 MG; Start 06/19/17 at 09:00 Diphenhydramine HCl 50 mg 50 mg Q6H PRN IM ITCHING Last administered on 08:53; Admin Dose 50 MG; Start 06/19/17 at 00:00 Ceftriaxone Sodium (Rocephin) 50 ml @ 100 mls/hr Q24H IVPB ; Start 06/19/17 at 17:00 Diphenhydramine HCl 50 mg 50 mg Q6H PRN PO ITCHING; Start 06/19/17 at 09:00 Sodium Chloride (1/2 NS) 1,000 ml @ 125 mls/hr Q8H IV ; Start 06/19/17 at 10:30 Hydromorphone HCl (Dilaudid) 4 mg Q2H PRN IV PAIN LEVEL 7-10 Last administered on 06/19/17 11:43; Admin Dose 4 MG; Start 06/19/17 at 11:00 Azithromycin (Zithromax) 500 mg DAILY PO ; Start 06/19/17 at 12:00 JAY YUEN MD Jun 19, 2017 12:13
--- NOTE | 2017-06-19 14:23 | CONS ---
Date/Time of Note Date/Time of Note DATE: 06/19/17 TIME: 14:11 Assessment/Plan Assessment/Plan Additional Assessment/Plan I agree with the current management of this sickle cell episode. RBC transfusion has been given but he may need one more unit. Hydrea has been given for many years and should be continued. The current episode may have been precipitated by bronchitis and he will need supportive care. Otherwise symptomatic care will be needed. He says that Benadryl is often needed for pruritis from narcotics. I will order that. He should also continue the vancomycin program that was started previously. I will also check his iron levels given the history of prior chelation. Consultation Date/Type/Reason Admit Date/Time Jun 18, 2017 at 19:31 Date of Consultation: Jun 19, 2017 Type of Consultation: hematology Reason for Consultation sickle cell crisis Referring Provider: EV CARPIO Hx of Present Illness 37 yo man with life long history of sickle cell disease and who is now admitted for crisis with chest pain. No PE seen on imaging study. He is usually taken care of in [facility] but is here for family visit. The current episode may have been precipitated by bronchitis. He has been on Hydrea 1500 mg/d and gets transfusions a few times a year. His usual preparole counseling aide has also given him iron chelation in the past. Full records are not available. 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 He is currently on a planned 8 week program of vancomycin. Other history includes morbid obesity, Hx of NM, pedal edema, DVT, bipolar disorder and GERD. Social History Alcohol Use: none Smoking Status: Former smoker Drug Use: none Exam/Review of Systems Vital Signs Vitals Vital Signs Date Time Temp Pulse Resp B/P Pulse Ox O2 Delivery O2 Flow Rate FiO2 06/19/17 13:42 21 06/19/17 12:06 105 06/19/17 11:50 97.4 19 147/62 94 06/18/17 22:48 6.0 06/18/17 18:01 Nasal Cannula Intake and Output 06/18/17 06/18/17 06/19/17 15:00 23:00 07:00 Intake Total 1425 ml Output Total 1600 ml Balance -175 ml Exam Constitutional: alert, oriented Head: normocephalic Eyes: nl conjunctiva, other (pallor) ENMT: nl external ears & nose Neck: supple Respiratory: wheezing (faint) Cardiovascular: regular rate and rhythm Gastrointestinal: soft Extremities: edema Neurological: nl mental status, nl speech Lymph: nl lymph nodes Results Result Diagram: 06/19/17 0800 06/19/17 0800 Results 24 hrs Laboratory Tests Test 06/18/17 16:00 06/18/17 16:05 06/18/17 16:20 06/18/17 16:36 Blood Gas Specimen Source Blood arterial Arterial Blood Date Drawn 06/18/2017 4:50:23 PM Arterial Blood pH (Temp corrected) 7.439 Arterial Blood pCO2 (Temp correct) 43.4 Arterial Blood pO2 (Temp corrected) 81.0 Arterial Blood HCO3 28.7 H Arterial Blood Base Excess 4.1 H Arterial Blood Oxygen Saturation 95.6 Rafiq Test ACCEPTAB Arterial Blood Gas Puncture Site Left Radial Arterial Blood Carboxyhemoglobin 0.3 Arterial Blood Methemoglobin 0.4 Blood Gas A-a O2 Differential 60.2 H Oxyhemoglobin Percent 94.9 Total Hemoglobin 10.0 L Blood Gas Temperature 37.0 Blood Gas Modality NASAL CANNULA FiO2 27.0 Blood Gas Notified Whom MDA Blood Gas Notified Time 06/18/2017 4:54:47 PM Lactic Acid Level 2.0 White Blood Count 7.8 Red Blood Count 3.15 L Hemoglobin 8.5 L Hematocrit 27.1 L Mean Corpuscular Volume 86.0 Mean Corpuscular Hemoglobin 27.0 L Mean Corpuscular Hemoglobin Concent 31.4 L Red Cell Distribution Width 17.9 H Platelet Count 265 Mean Platelet Volume 10.6 H Neutrophils % 68.8 Segmented Neutrophils % (Manual) 68 Lymphocytes % 14.9 L Lymphocytes % (Manual) 15 Monocytes % 7.7 Monocytes % (Manual) 7 Eosinophils % 7.9 H Eosinophils % (Manual) 9 H Basophils % 0.1 Metamyelocytes % (manual) 1 H Nucleated Red Blood Cells % 0.3 H Neutrophils # 5.4 Absolute Lymphocytes (Manual) 1.1 Lymphocytes # 1.2 Monocytes # 0.6 Absolute Monocytes (Manual) 0.5 Eosinophils # 0.6 H Basophils # 0.0 Metamyelocytes # 0.0 Nucleated Red Blood Cells # 0.0 Platelet Estimate NORMAL Platelet Morphology Comment @See below Polychromasia 1+ Hypochromasia 2+ Anisocytosis 1+ Macrocytosis 1+ Absolute Reticulocyte Count 0.093 Percent Reticulocyte Count 3.0 H Prothrombin Time 15.5 H Prothrombin Time Ratio 1.2 INR International Normalized Ratio 1.22 Activated Partial Thromboplast Time 30.9 Sodium Level 144 Potassium Level 4.1 Chloride Level 100 Carbon Dioxide Level 31 Anion Gap 17 H Blood Urea Nitrogen 14 Creatinine 0.89 Glucose Level 122 Calcium Level 9.3 Total Bilirubin 0.3 Direct Bilirubin 0.00 Indirect Bilirubin 0.3 Aspartate Amino Transf (AST/SGOT) 25 Alanine Aminotransferase (ALT/SGPT) 40 Alkaline Phosphatase 85 Troponin I < 0.012 B-Type Natriuretic Peptide 29 Total Protein 7.4 Albumin 4.1 Globulin 3.30 H Albumin/Globulin Ratio 1.24 Urine Color STRAW Urine Clarity CLEAR Urine pH 7.0 Urine Specific [place] 1.008 Urine Ketones NEGATIVE Urine Nitrite NEGATIVE Urine Bilirubin NEGATIVE Urine Urobilinogen NEGATIVE Urine Leukocyte Esterase NEGATIVE Urine Hemoglobin NEGATIVE Urine Glucose NEGATIVE Urine Total Protein NEGATIVE Test 06/18/17 18:10 06/19/17 01:04 06/19/17 07:25 06/19/17 08:00 Lactic Acid Level 1.8 2.0 White Blood Count 7.9 5.9 # Red Blood Count 3.18 L 2.99 L Hemoglobin 8.5 L 7.8 L Hematocrit 27.0 L 25.3 L Mean Corpuscular Volume 84.9 84.6 Mean Corpuscular Hemoglobin 26.7 L 26.1 L Mean Corpuscular Hemoglobin Concent 31.5 L 30.8 L Red Cell Distribution Width 18.0 H 18.1 H Platelet Count 268 231 Mean Platelet Volume 11.4 H 11.9 H Neutrophils % 68.3 64.2 Lymphocytes % 16.4 17.0 Monocytes % 7.7 8.8 Eosinophils % 7.1 H 9.3 H Basophils % 0.1 0.2 Nucleated Red Blood Cells % 0.3 H 0.0 Neutrophils # 5.4 3.8 Lymphocytes # 1.3 1.0 Monocytes # 0.6 0.5 Eosinophils # 0.6 H 0.6 H Basophils # 0.0 0.0 Nucleated Red Blood Cells # 0.0 0.0 Creatine Kinase 789 H 708 H Creatine Kinase Index 0.4 0.4 Creatinine Kinase MB (Mass) 3.31 H 2.51 H Troponin I < 0.012 < 0.012 Urine Opiates Screen Positive Urine Barbiturates Negative Urine Amphetamines Screen Negative Urine Benzodiazepines Screen Positive Urine Cocaine Screen Negative Urine Cannabinoids Negative Sodium Level 141 Potassium Level 4.3 Chloride Level 101 Carbon Dioxide Level 28 Anion Gap 16 Blood Urea Nitrogen 13 Creatinine 0.83 Glucose Level 119 Hemoglobin A1c 6.2 H Calcium Level 8.6 Magnesium Level 1.9 Total Bilirubin 0.3 Direct Bilirubin 0.00 Indirect Bilirubin 0.3 Aspartate Amino Transf (AST/SGOT) 26 Alanine Aminotransferase (ALT/SGPT) 34 Alkaline Phosphatase 73 Total Protein 6.7 Albumin 3.7 Globulin 3.00 Albumin/Globulin Ratio 1.23 Thyroid Stimulating Hormone (TSH) 3.700 Medications Medications Current Medications Ondansetron HCl (Zofran Inj) 4 mg Q6H PRN IV NAUSEA AND/OR VOMITING; Start 06/18/17 at 23:00 Acetaminophen (Tylenol Tab) 650 mg Q6H PRN PO PAIN LEVEL 1-3 OR FEVER; Start 06/18/17 at 23:00 Docusate Sodium (Colace) 100 mg Q12H PRN PO CONSTIPATION; Start 06/18/17 at 23: 00 Bisacodyl (Dulcolax) 5 mg DAILY PRN PO CONSTIPATION; Start 06/18/17 at 23:00 Pantoprazole (Protonix Iv) 40 mg BID@06,18 IV Last administered on 06/19/17 05 :08; Admin Dose 40 MG; Start 06/18/17 at 23:00 Hydromorphone HCl (Dilaudid) 1 mg Q2H PRN IV severe pain ; Start 06/19/17 at 01 :00 Folic Acid (Folic Acid) 1 mg DAILY PO ; Start 06/19/17 at 09:00 Hydroxyurea (Hydrea) 500 mg TID PO ; Start 06/19/17 at 09:00 Quetiapine Fumarate (Seroquel) 400 mg BID PO Last administered on 06/19/17 09: 04; Admin Dose 400 MG; Start 06/19/17 at 09:00 Diphenhydramine HCl (Benadryl) 50 mg Q6H PRN IM ITCHING Last administered on 08:53; Admin Dose 50 MG; Start 06/19/17 at 00:00 Diphenhydramine HCl 50 mg 50 mg Q6H PRN PO ITCHING; Start 06/19/17 at 09:00 Sodium Chloride (1/2 NS) 1,000 ml @ 125 mls/hr Q8H IV ; Start 06/19/17 at 10:30 Hydromorphone HCl (Dilaudid) 4 mg Q2H PRN IV PAIN LEVEL 7-10 Last administered on 06/19/17 13:15; Admin Dose 4 MG; Start 06/19/17 at 11:00 Azithromycin 500 mg 500 mg DAILY PO Last administered on 06/19/17 13:16; Admin Dose 500 MG; Start 06/19/17 at 12:00 Vancomycin HCl/ Sodium Chloride (Vancocin/NS) 250 ml @ 83.333 mls/ hr Q12H IVPB ; Start 06/19/17 at 14:30 SUBHASH ZUÑIGA MD Jun 19, 2017 14:22
[2017-06-19] MEDS: VANCOMYCIN 1.25 GM in SOD CHLORIDE 0.9% 250 ML IVPB SCH (15:09)
[2017-06-19] MEDS: PANTOPRAZOLE (EC) 40 MG TAB PO SCH (17:07)
--- NOTE | 2017-06-19 18:01 | RADRPT ---
PROCEDURE: XR Chest. CLINICAL INDICATION: Shortness of breath. TECHNIQUE: Two views. Frontal and lateral. COMPARISON: 06/18/2017. FINDINGS: The lungs are clear. There is a left arm PICC line with the tip in the mid superior vena cava. The heart size is normal. There is no pleural effusion. There is no pneumothorax. IMPRESSION: 1. Left arm PICC line in satisfactory position. 2. Otherwise normal chest radiograph. 3. No change from 06/18/2017. RPTAT: QQ .Robert Greene MD, MD Date Time Electronically viewed and signed by .Robert Greene MD, MD on 06/19/2017 18:01 .R/
--- NOTE | 2017-06-19 18:57 | RADRPT ---
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 Physician: EV CARPIO Quality: Technically Difficult Study Procedures: Transthoracic echocardiogram with complete 2D, M-Mode, and doppler examination. Indications: lower extremity swelling. 2D/M Mode Doppler Measurement Value Normal Ranges Measurement Value Normal Ranges LVIDd 2D 5.3 3.5 - 5.6 cm AV Peak Dimitrios 1.8 m/sec LVIDs 2D 2.8 2.1 - 4.1 cm AV Peak PG 13.0 mmHg FS 2D 47.5 % LVOT Peak Dimitrios 1.2 m/sec LVPWd 2D 1.2 0.6 - 1.1 cm LVOT Peak PG 5.0 mmHg IVSd 2D 1.2 0.6 - 1.1 cm TR Peak Dimitrios 2.7 m/sec IVS/LVPW 2D 1.0 TR Peak PG 29.0 mmHg AoR Diam 2D 2.9 2.0 - 3.7 cm RVSP 37.0 mmHg LA/Ao 2D 1 0 - 1 EDV 2D 147.0 cm3 ESV 2D 21.3 cm3 LA Dimen 2D 3.5 2.3 - 4.0 cm Findings Left Ventricle: Normal left ventricular systolic function. Normal left ventricular cavity size. Mild concentric left ventricular hypertrophy. Ejection fraction is visually estimated at 6065 %. Right Ventricle: Normal right ventricular size. Normal right ventricular systolic function. Left Atrium: The left atrium is normal in size. Right Atrium: The right atrium is normal in size. Mitral Valve: Mitral valve leaflets appear mildly thickened. Mild mitral annular calcification. Trace mitral regurgitation. Aortic Valve: Normal appearance of the aortic valve. No significant aortic stenosis or insufficiency. Tricuspid Valve: Normal appearance of the tricuspid valve. Estimated peak PA systolic pressure 37 mmHg. There is mild tricuspid regurgitation. Pulmonic Valve: Normal pulmonic valve appearance. Pericardium: Normal pericardium with no significant pericardial effusion. Aorta: Normal aortic root. IVC: Dilated IVC with respiratory collapse consistent with elevated right atrial pressure. Conclusions 1.Normal left ventricular systolic function. Normal left ventricular cavity size. Mild concentric left ventricular hypertrophy. Ejection fraction is visually estimated at 60-65 %. 2.Mitral valve leaflets appear mildly thickened. Mild mitral annular calcification. Trace mitral regurgitation. 3.Normal appearance of the tricuspid valve. Estimated peak PA systolic pressure 37 mmHg. There is mild tricuspid regurgitation. Electronically Signed By: Richie Gallego 19-Jun-2017 18:57:28 -0700 Patient Name: JOSE G JOSEPH Study Date: 19-Jun-2017 [id number]
--- NOTE | 2017-06-19 18:57 | RADRPT ---
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 Physician: EV CARPIO Quality: Technically Difficult Study Procedures: Transthoracic echocardiogram with complete 2D, M-Mode, and doppler examination. Indications: lower extremity swelling. 2D/M Mode Doppler Measurement Value Normal Ranges Measurement Value Normal Ranges LVIDd 2D 5.3 3.5 - 5.6 cm AV Peak Dimitrios 1.8 m/sec LVIDs 2D 2.8 2.1 - 4.1 cm AV Peak PG 13.0 mmHg FS 2D 47.5 % LVOT Peak Dimitrios 1.2 m/sec LVPWd 2D 1.2 0.6 - 1.1 cm LVOT Peak PG 5.0 mmHg IVSd 2D 1.2 0.6 - 1.1 cm TR Peak Dimitrios 2.7 m/sec IVS/LVPW 2D 1.0 TR Peak PG 29.0 mmHg AoR Diam 2D 2.9 2.0 - 3.7 cm RVSP 37.0 mmHg LA/Ao 2D 1 0 - 1 EDV 2D 147.0 cm3 ESV 2D 21.3 cm3 LA Dimen 2D 3.5 2.3 - 4.0 cm Findings Left Ventricle: Normal left ventricular systolic function. Normal left ventricular cavity size. Mild concentric left ventricular hypertrophy. Ejection fraction is visually estimated at 6065 %. Right Ventricle: Normal right ventricular size. Normal right ventricular systolic function. Left Atrium: The left atrium is normal in size. Right Atrium: The right atrium is normal in size. Mitral Valve: Mitral valve leaflets appear mildly thickened. Mild mitral annular calcification. Trace mitral regurgitation. Aortic Valve: Normal appearance of the aortic valve. No significant aortic stenosis or insufficiency. Tricuspid Valve: Normal appearance of the tricuspid valve. Estimated peak PA systolic pressure 37 mmHg. There is mild tricuspid regurgitation. Pulmonic Valve: Normal pulmonic valve appearance. Pericardium: Normal pericardium with no significant pericardial effusion. Aorta: Normal aortic root. IVC: Dilated IVC with respiratory collapse consistent with elevated right atrial pressure. Conclusions 1.Normal left ventricular systolic function. Normal left ventricular cavity size. Mild concentric left ventricular hypertrophy. Ejection fraction is visually estimated at 60-65 %. 2.Mitral valve leaflets appear mildly thickened. Mild mitral annular calcification. Trace mitral regurgitation. 3.Normal appearance of the tricuspid valve. Estimated peak PA systolic pressure 37 mmHg. There is mild tricuspid regurgitation. Electronically Signed By: Richie Gallego 19-Jun-2017 18:57:28 -0700 Patient Name: JOSE G JOSEPH Study Date: 19-Jun-2017 [id number]
[2017-06-19] MEDS ORDERED: DIPHENHYDRAMINE 50 MG INJ IV ONE (23:00)
[2017-06-20] MEDS: ALBUTEROL/IPRATROPIUM (NEB) 3 ML AMP HHN SCH ×6 (01:00→20:20)
[2017-06-20 01:29] VITALS: BP 115/60; RESP 20
[2017-06-20] MEDS: HYDROmorphONE 2 MG/ML SYG IV PRN ×11 (01:33→22:53)
[2017-06-20] MEDS: VANCOMYCIN 1.25 GM in SOD CHLORIDE 0.9% 250 ML IVPB SCH ×2 (02:14→15:25)
[2017-06-20] MEDS: PANTOPRAZOLE (EC) 40 MG TAB PO SCH (05:42)
[2017-06-20] MEDS: SOD CHLORIDE 0.45% 1,000 ML IV SCH ×4 (05:43→18:30)
[2017-06-20 08:08] VITALS: BP 141/90; RESP 20
[2017-06-20] MEDS: QUETIAPINE 100 MG TAB PO SCH ×2 (09:38→20:43)
[2017-06-20] MEDS: BISACODYL (EC) 5 MG TAB PO SCH (09:38)
[2017-06-20] MEDS: FOLIC ACID 1 MG TAB PO SCH (09:38)
[2017-06-20] MEDS: HYDROXYUREA 500 MG CAP PO SCH ×3 (09:42→20:47)
--- NOTE | 2017-06-20 12:47 | PN ---
Date/Time of Note Date/Time of Note DATE: 06/20/17 TIME: 12:43 Assessment/Plan VTE Prophylaxis VTE Prophylaxis Intervention: SCD's Lines/Catheters IV Catheter Type (from Nrsg): PICC Line Central line still needed: Yes Urinary Cath still in place: No Assessment/Plan Assessment/Plan 37 yo M with sickle cell with joint pains and SOB. Also diagnosed with hip AVN ~3 weeks ago and was told he needed 6-8 weeks of IV vanc #SOB: most likely URI -RVP -supportive care #hip AVN with ?infection: cont vanc -osh records requested #sickle cell with acute pain crisis -IVFs, pain meds decreased -cont home hydroxurea -transfusions as per heme #hematemesis: GI eval pending-->texted user experience architect this AM as f/u -empiric BID PPI pending EGD #h/o DVTs/PEs warranting lifelong ATC -no current DVT/PE on imaging -await GI eval before resuming ATC Subjective 24 Hr Interval Summary Free Text/Dictation nursing concerned pt was getting oversedated from pain meds overnight Exam/Review of Systems Vital Signs Vitals Vital Signs Date Time Temp Pulse Resp B/P Pulse Ox O2 Delivery O2 Flow Rate FiO2 06/20/17 09:52 90 92 21 06/20/17 08:08 97.9 103 141/90 06/18/17 22:48 6.0 06/18/17 18:01 Nasal Cannula Intake and Output 06/19/17 06/19/17 06/20/17 15:00 23:00 07:00 Intake Total 650 ml Balance 650 ml Exam nad no mrg abd soft no rashes no edema Results Result Diagram: 06/20/17 0543 06/20/17 0543 Results 24 hrs Laboratory Tests Test 06/19/17 15:45 06/20/17 05:34 06/20/17 05:43 White Blood Count 6.0 5.4 Red Blood Count 3.11 L 3.13 L Hemoglobin 8.5 L 8.3 L Hematocrit 26.5 L 26.8 L Mean Corpuscular Volume 85.2 85.6 Mean Corpuscular Hemoglobin 27.3 L 26.5 L Mean Corpuscular Hemoglobin Concent 32.1 31.0 L Red Cell Distribution Width 17.4 H 17.7 H Platelet Count 244 246 Mean Platelet Volume 10.8 H 11.8 H Neutrophils % 62.2 59.7 Lymphocytes % 18.5 22.2 Monocytes % 8.8 7.6 Eosinophils % 10.0 H 9.9 H Basophils % 0.0 0.2 Nucleated Red Blood Cells % 0.0 0.4 H Neutrophils # 3.7 3.2 Lymphocytes # 1.1 1.2 Monocytes # 0.5 0.4 Eosinophils # 0.6 H 0.5 Basophils # 0.0 0.0 Nucleated Red Blood Cells # 0.0 0.0 Lab Scanned Report BLOOD TRANSFUSION Absolute Reticulocyte Count 0.070 Percent Reticulocyte Count 2.3 H Sodium Level 140 Potassium Level 4.5 Chloride Level 103 Carbon Dioxide Level 29 Anion Gap 13 Blood Urea Nitrogen 16 Creatinine 0.86 Glucose Level 139 Calcium Level 8.6 Phosphorus Level 5.3 H Magnesium Level 2.1 Iron Level 70 Total Iron Binding Capacity 416 Percent Iron Saturation 17 L Total Bilirubin 0.2 Direct Bilirubin 0.00 Indirect Bilirubin 0.2 Aspartate Amino Transf (AST/SGOT) 22 Alanine Aminotransferase (ALT/SGPT) 39 Alkaline Phosphatase 73 Lactate Dehydrogenase 557 Total Protein 6.6 Albumin 3.4 Globulin 3.20 Albumin/Globulin Ratio 1.06 Medications Medications Current Medications Ondansetron HCl (Zofran Inj) 4 mg Q6H PRN IV NAUSEA AND/OR VOMITING; Start 06/18/17 at 23:00 Acetaminophen (Tylenol Tab) 650 mg Q6H PRN PO PAIN LEVEL 1-3 OR FEVER; Start 06/18/17 at 23:00 Docusate Sodium (Colace) 100 mg Q12H PRN PO CONSTIPATION; Start 06/18/17 at 23: 00 Folic Acid (Folic Acid) 1 mg DAILY PO Last administered on 06/20/17 09:38; Admin Dose 1 MG; Start 06/19/17 at 09:00 Hydroxyurea (Hydrea) 500 mg TID PO Last administered on 06/20/17 09:42; Admin Dose 500 MG; Start 06/19/17 at 09:00 Quetiapine Fumarate (Seroquel) 400 mg BID PO Last administered on 06/20/17 09: 38; Admin Dose 400 MG; Start 06/19/17 at 09:00 Diphenhydramine HCl 50 mg 50 mg Q6H PRN IM ITCHING Last administered on 15:14; Admin Dose 50 MG; Start 06/19/17 at 00:00 Sodium Chloride 1,000 ml @ 125 mls/hr Q8H IV Last administered on 06/20/17 05 :43; Admin Dose 125 MLS/HR; Start 06/19/17 at 10:30 Vancomycin HCl/ Sodium Chloride (Vancocin/NS) 250 ml @ 83.333 mls/ hr Q12H IVPB Last administered on 06/20/17 02:14; Admin Dose 83.333 MLS/HR; Start 06/19/17 at 14:30 Pantoprazole (Protonix Tab) 40 mg BID@06,18 PO Last administered on 06/20/17 05:42; Admin Dose 40 MG; Start 06/19/17 at 18:00 Diphenhydramine HCl (Benadryl) 50 mg Q4H PRN PO ITCHING Last administered on 19:17; Admin Dose 50 MG; Start 06/19/17 at 19:00 Bisacodyl (Dulcolax) 5 mg DAILY PO Last administered on 06/20/17 09:38; Admin Dose 5 MG; Start 06/20/17 at 09:00 Hydromorphone HCl (Dilaudid) 2 mg Q2H PRN IV PAIN LEVEL 7-10 Last administered on 06/20/17 10:37; Admin Dose 2 MG; Start 06/20/17 at 09:00 JAY YUEN MD Jun 20, 2017 12:47
--- NOTE | 2017-06-20 14:06 | CONS ---
Date/Time of Note Date/Time of Note DATE: 06/20/17 TIME: 13:23 Assessment/Plan Assessment/Plan Chief Complaint/Hosp Course Assessment: Hematemesis R/O erosive gastritis versus PUD-exacerbated by anticoagulant therapy Sickle cell anemia LLQ abdominal pain Plan: Continue PPI therapy Continue to monitor H/H N.p.o. after midnight Plan for EGD tomorrow Endoscopy - risks/benefits/alternatives/indications of procedure and sedation/ anesthesia discussed with patient who states understanding and gives informed consent to proceed. PARQ held and questions were answered. CT abdomen pelvis Patient is seen in collaboration with Chief Complaint/Reason for Visit: Emesis History of Present Illness: This is a 37-year-old male with multiple comorbidities including sickle cell anemia, and to the ER with nausea hematemesis and abdominal pain. Patient notes he was diagnosed with DVT and was on Coumadin stopped after first episode of hematemesis about 3 days prior to ER evaluation. Since then when more episode of hematemesis in the ER. Workup was completed including chest x-ray CT angio negative for PE, venous Doppler negative for DVT. Hgb has been monitored since admission and did drop as low as 7.8, 1 unit of PRBCs was given , Hgb currently 8.3. At time of examination patient noted to have expiratory wheezing, CXR negative, he denies any further episodes of hematemesis, diarrhea , constipation, pyrosis, dysphagia, or hematochezia, and continues to complain of LLQ abdominal pain described as throbbing relieved with pain medication not aggravated by anything in particular. He has never had a colonoscopy, last EGD 2-3 years ago revealed gastric ulcer with clipping. Presentation will plan for EGD tomorrow, will obtain CT abdomen pelvis to r/o underlying etiology of LLQ pain. Past Medical History: Sickle cell anemia DVT PE CVA in 2016 Gastric ulcers Allergies: Morphine Ketorolac metopramide Ondansetron Family History: No family history of colon cancer No family history of esophageal cancer Social History: Former smoker PHYSICAL EXAMINATION: GENERAL: Well developed, well nourished, alert & oriented x 3, in no acute distress SKIN: No lesions, no stigmata chronic liver disease, no evidence of bleeding diathesis LYMPHATIC: No palpable lymphadenopathy. HEAD: Normocephalic, atraumatic, no tenderness. EYES: Pupils equal reactive to light and accommodation, full extraocular movements, sclera clear, non-icteric, no discharge. EARS/NOSE AND THROAT: Ears normal, nose normal, oropharynx normal, oral membranes well hydrated without lesions. NECK: Supple, no masses, thyroid normal, JVP within normal limits, carotids normal without bruits. CHEST: Inspection within normal limits. CARDIOVASCULAR: Heart: Regular rate and rhythm, no murmurs, gallops or rubs. Peripheral pulses present within normal limits, no cyanosis, clubbing or edemas. No pulsatile abdominal mass RESPIRATORY: Expiratory wheezing GASTROINTESTINAL AND LIVER: Abdomen: Soft, tenderness LLQ, non-distended, no hernias, no masses, no organomegaly, no ascites, no guarding, no rebound tenderness, normoactive bowel sounds. Rectal: Deferred. GENITOURINARY: Male genitalia within normal limits. EXTREMITIES: No cyanosis, clubbing or edema. Problems: Consultation Date/Type/Reason Admit Date/Time Jun 18, 2017 at 19:31 Date of Consultation: Jun 20, 2017 Type of Consultation: GI Reason for Consultation Hematemesis Review of Systems: Gastrointestinal and liver: Positive for: Hematemesis, nausea, left lower quadrant abdominal pain, occasional odynophagia,decreased appetite negative for : dysphagia, pyrosis, regurgitation, early satiety, bloating, food intolerance , diarrhea, constipation, change in bowel habits, laxative use, , melena, hematochezia, and rectal symptoms, incontinence, jaundice. Constitutional: no complaints Eyes: no complaints ENT: no complaints Respiratory: shortness of breath, wheezing Cardiovascular: no complaints Genitourinary: no complaints Musculoskeletal: other (Generalized weakness) Past Medical History Medical History: deep vein thrombosis, other (PE, ID 2, CVA 2016, sickle cell anemia, gastric ulcers) Past Surgical History Past Surgical Hx: cholecystectomy, endoscopy Family History Significant Family History: other (No family history of colon cancer or esophageal cancer) Social History Alcohol Use: none Smoking Status: Former smoker Drug Use: none Exam/Review of Systems Vital Signs Vitals Vital Signs Date Time Temp Pulse Resp B/P Pulse Ox O2 Delivery O2 Flow Rate FiO2 06/20/17 09:52 90 92 21 06/20/17 08:08 97.9 103 141/90 06/18/17 22:48 6.0 06/18/17 18:01 Nasal Cannula Intake and Output 06/19/17 06/19/17 06/20/17 15:00 23:00 07:00 Intake Total 650 ml Balance 650 ml Results Result Diagram: 06/20/17 0543 06/20/17 0543 Results 24 hrs Laboratory Tests Test 06/19/17 15:45 06/20/17 05:34 06/20/17 05:43 White Blood Count 6.0 5.4 Red Blood Count 3.11 L 3.13 L Hemoglobin 8.5 L 8.3 L Hematocrit 26.5 L 26.8 L Mean Corpuscular Volume 85.2 85.6 Mean Corpuscular Hemoglobin 27.3 L 26.5 L Mean Corpuscular Hemoglobin Concent 32.1 31.0 L Red Cell Distribution Width 17.4 H 17.7 H Platelet Count 244 246 Mean Platelet Volume 10.8 H 11.8 H Neutrophils % 62.2 59.7 Lymphocytes % 18.5 22.2 Monocytes % 8.8 7.6 Eosinophils % 10.0 H 9.9 H Basophils % 0.0 0.2 Nucleated Red Blood Cells % 0.0 0.4 H Neutrophils # 3.7 3.2 Lymphocytes # 1.1 1.2 Monocytes # 0.5 0.4 Eosinophils # 0.6 H 0.5 Basophils # 0.0 0.0 Nucleated Red Blood Cells # 0.0 0.0 Lab Scanned Report BLOOD TRANSFUSION Absolute Reticulocyte Count 0.070 Percent Reticulocyte Count 2.3 H Sodium Level 140 Potassium Level 4.5 Chloride Level 103 Carbon Dioxide Level 29 Anion Gap 13 Blood Urea Nitrogen 16 Creatinine 0.86 Glucose Level 139 Calcium Level 8.6 Phosphorus Level 5.3 H Magnesium Level 2.1 Iron Level 70 Total Iron Binding Capacity 416 Percent Iron Saturation 17 L Total Bilirubin 0.2 Direct Bilirubin 0.00 Indirect Bilirubin 0.2 Aspartate Amino Transf (AST/SGOT) 22 Alanine Aminotransferase (ALT/SGPT) 39 Alkaline Phosphatase 73 Lactate Dehydrogenase 557 Total Protein 6.6 Albumin 3.4 Globulin 3.20 Albumin/Globulin Ratio 1.06 Medications Medications Current Medications Ondansetron HCl (Zofran Inj) 4 mg Q6H PRN IV NAUSEA AND/OR VOMITING; Start 06/18/17 at 23:00 Acetaminophen (Tylenol Tab) 650 mg Q6H PRN PO PAIN LEVEL 1-3 OR FEVER; Start 06/18/17 at 23:00 Docusate Sodium (Colace) 100 mg Q12H PRN PO CONSTIPATION; Start 06/18/17 at 23: 00 Folic Acid (Folic Acid) 1 mg DAILY PO Last administered on 06/20/17 09:38; Admin Dose 1 MG; Start 06/19/17 at 09:00 Hydroxyurea (Hydrea) 500 mg TID PO Last administered on 06/20/17 12:47; Admin Dose 500 MG; Start 06/19/17 at 09:00 Quetiapine Fumarate (Seroquel) 400 mg BID PO Last administered on 06/20/17 09: 38; Admin Dose 400 MG; Start 06/19/17 at 09:00 Diphenhydramine HCl 50 mg 50 mg Q6H PRN IM ITCHING Last administered on 15:14; Admin Dose 50 MG; Start 06/19/17 at 00:00 Sodium Chloride 1,000 ml @ 125 mls/hr Q8H IV Last administered on 06/20/17 05 :43; Admin Dose 125 MLS/HR; Start 06/19/17 at 10:30 Vancomycin HCl/ Sodium Chloride (Vancocin/NS) 250 ml @ 83.333 mls/ hr Q12H IVPB Last administered on 06/20/17 02:14; Admin Dose 83.333 MLS/HR; Start 06/19/17 at 14:30 Pantoprazole (Protonix Tab) 40 mg BID@06,18 PO Last administered on 06/20/17 05:42; Admin Dose 40 MG; Start 06/19/17 at 18:00 Diphenhydramine HCl (Benadryl) 50 mg Q4H PRN PO ITCHING Last administered on 19:17; Admin Dose 50 MG; Start 06/19/17 at 19:00 Bisacodyl (Dulcolax) 5 mg DAILY PO Last administered on 06/20/17 09:38; Admin Dose 5 MG; Start 06/20/17 at 09:00 Hydromorphone HCl (Dilaudid) 2 mg Q2H PRN IV PAIN LEVEL 7-10 Last administered on 06/20/17 12:39; Admin Dose 2 MG; Start 06/20/17 at 09:00 ARACELIS ZHANG Jun 20, 2017 13:34
[2017-06-20 14:48] VITALS: BP 112/55; RESP 16
--- NOTE | 2017-06-20 15:35 | CONS ---
Date/Time of Note Date/Time of Note DATE: 06/20/17 TIME: 15:33 Consult Date/Type/Reason Admit Date/Time Jun 18, 2017 at 19:31 Initial Consult Date 06/20/17 Type of Consultation: Pulmonary Ordering Provider: EV CARPIO Subjective Patient sleeping comfortable at rest no new events. Objective Vital Signs Date Time Temp Pulse Resp B/P Pulse Ox O2 Delivery O2 Flow Rate FiO2 06/20/17 14:48 96.3 105 16 112/55 95 06/20/17 09:52 21 06/18/17 22:48 6.0 06/18/17 18:01 Nasal Cannula Intake and Output 06/19/17 06/19/17 06/20/17 15:00 23:00 07:00 Intake Total 650 ml Balance 650 ml Exam GENERAL: Obese gentleman comfortable in no respiratory distress VITAL SIGNS: per chart NECK: Supple. No JVD or lymphadenopathy. Neck enlarged protruding tongue CARDIAC EXAM: S1, S2. No added sounds or murmurs. CHEST: clear bilaterally, No added sounds, rales or wheezes ABDOMEN: Soft, nontender. No guarding or rebound. EXTREMITIES: No cyanosis, clubbing or edema. NEUROLOGIC: Generalized weakness Results/Medications Result Diagram: 06/20/17 0543 06/20/17 0543 Results 24 hrs Laboratory Tests Test 06/19/17 15:45 06/20/17 05:34 06/20/17 05:43 White Blood Count 6.0 5.4 Red Blood Count 3.11 L 3.13 L Hemoglobin 8.5 L 8.3 L Hematocrit 26.5 L 26.8 L Mean Corpuscular Volume 85.2 85.6 Mean Corpuscular Hemoglobin 27.3 L 26.5 L Mean Corpuscular Hemoglobin Concent 32.1 31.0 L Red Cell Distribution Width 17.4 H 17.7 H Platelet Count 244 246 Mean Platelet Volume 10.8 H 11.8 H Neutrophils % 62.2 59.7 Lymphocytes % 18.5 22.2 Monocytes % 8.8 7.6 Eosinophils % 10.0 H 9.9 H Basophils % 0.0 0.2 Nucleated Red Blood Cells % 0.0 0.4 H Neutrophils # 3.7 3.2 Lymphocytes # 1.1 1.2 Monocytes # 0.5 0.4 Eosinophils # 0.6 H 0.5 Basophils # 0.0 0.0 Nucleated Red Blood Cells # 0.0 0.0 Lab Scanned Report BLOOD TRANSFUSION Absolute Reticulocyte Count 0.070 Percent Reticulocyte Count 2.3 H Sodium Level 140 Potassium Level 4.5 Chloride Level 103 Carbon Dioxide Level 29 Anion Gap 13 Blood Urea Nitrogen 16 Creatinine 0.86 Glucose Level 139 Calcium Level 8.6 Phosphorus Level 5.3 H Magnesium Level 2.1 Iron Level 70 Total Iron Binding Capacity 416 Percent Iron Saturation 17 L Ferritin 20.1 Total Bilirubin 0.2 Direct Bilirubin 0.00 Indirect Bilirubin 0.2 Aspartate Amino Transf (AST/SGOT) 22 Alanine Aminotransferase (ALT/SGPT) 39 Alkaline Phosphatase 73 Lactate Dehydrogenase 557 Total Protein 6.6 Albumin 3.4 Globulin 3.20 Albumin/Globulin Ratio 1.06 Medications Current Medications Ondansetron HCl (Zofran Inj) 4 mg Q6H PRN IV NAUSEA AND/OR VOMITING; Start 06/18/17 at 23:00 Acetaminophen (Tylenol Tab) 650 mg Q6H PRN PO PAIN LEVEL 1-3 OR FEVER; Start 06/18/17 at 23:00 Docusate Sodium (Colace) 100 mg Q12H PRN PO CONSTIPATION; Start 06/18/17 at 23: 00 Folic Acid (Folic Acid) 1 mg DAILY PO Last administered on 06/20/17 09:38; Admin Dose 1 MG; Start 06/19/17 at 09:00 Hydroxyurea (Hydrea) 500 mg TID PO Last administered on 06/20/17 12:47; Admin Dose 500 MG; Start 06/19/17 at 09:00 Quetiapine Fumarate (Seroquel) 400 mg BID PO Last administered on 06/20/17 09: 38; Admin Dose 400 MG; Start 06/19/17 at 09:00 Diphenhydramine HCl 50 mg 50 mg Q6H PRN IM ITCHING Last administered on 15:14; Admin Dose 50 MG; Start 06/19/17 at 00:00 Sodium Chloride 1,000 ml @ 125 mls/hr Q8H IV Last administered on 06/20/17 14 :08; Admin Dose 125 MLS/HR; Start 06/19/17 at 10:30 Vancomycin HCl/ Sodium Chloride (Vancocin/NS) 250 ml @ 83.333 mls/ hr Q12H IVPB Last administered on 06/20/17 15:25; Admin Dose 83.333 MLS/HR; Start 06/19/17 at 14:30 Diphenhydramine HCl (Benadryl) 50 mg Q4H PRN PO ITCHING Last administered on 19:17; Admin Dose 50 MG; Start 06/19/17 at 19:00 Bisacodyl (Dulcolax) 5 mg DAILY PO Last administered on 06/20/17 09:38; Admin Dose 5 MG; Start 06/20/17 at 09:00 Hydromorphone HCl (Dilaudid) 2 mg Q2H PRN IV PAIN LEVEL 7-10 Last administered on 06/20/17 14:39; Admin Dose 2 MG; Start 06/20/17 at 09:00 Miscellaneous Information (*Rx Drug Level Order Reminder*) 1 ONCE ONCE XX ; Start 06/21/17 at 01:30; Stop 06/21/17 at 01:31 Pantoprazole (Protonix Iv) 40 mg BID@06,18 IV ; Start 06/20/17 at 18:00 Assessment/Plan Chief Complaint/Hosp Course Assessment 1. Chest pain was certainly not acute chest syndrome. 2. History of sickle cell anemia 3. Probable obstructive sleep apnea 4. Anemia secondary to above Plan 1. Continue encourage out of bed 2. DC planning okay from primary standpoint 3. Consider outpatient sleep study Problems: TODD NORRIS MD, [facility] Jun 20, 2017 15:35
--- NOTE | 2017-06-20 15:36 | PN ---
DATE: 06/20/2017 SUBJECTIVE: Patient is feeling better. Less complaints of chest pain. No cough or shortness of br eath at this time. The patient continues to have some left lower quadrant abdominal pain. It does not radiate. He has not had any other reported hematemesis or nausea and vomiting. OBJECTIVE: GENERAL: The patient is a well-developed, obese male who is in no acute distress. VITAL SIGNS: Temperature 97, pulse 105 per minute and regular, respirations 16, blood pressure is 1 12/55 and pulse oximetry is 95% on room air. SKIN: No ecchymoses, no petechiae or rashes. HEENT: No mucosal lesions. The pupils are equal, round, react to light and accommodation. Sclerae are nonicteric. Oral mucosa is moist without lesions. Tongue well papillated. No gingival hyperp lasia, no hypertrophy of Waldeyer's ring. NECK: Supple. There is no jugular venous distention or thyroid enlargement. No carotid bruits. CHEST: Decreased breath sounds throughout. There is some expiratory wheezing. No rubs are heard. HEART: Sinus tachycardia. No S3, S4 or murmurs. ABDOMEN: Obese. No masses or ascites. There is some mild left lower quadrant tenderness, but no r ebound. There are no hernia defects. EXTREMITIES: No clubbing. No edema or cyanosis. No palpable cords or Louis's sign. LABORATORY: White count is 5400, hemoglobin 8.3, hematocrit 26.8 and platelet count is 246,000. So dium 140, potassium 4.5, creatinine 0.686 and a BUN 16. Total bilirubin 0.2, indirect 0.2. ASSESSMENT: 1. Sickle cell anemia with crisis. 2. Hematemesis. 3. Left lower quadrant abdominal pain. DISCUSSION: The patient's sickle cell is under relatively good control. We will continue the prese nt treatment. The patient is to have an upper GI endoscopy. Dictated By: OMAR JAMES MD, SR/MIMI Conf#: [id number] DID#: [id number]
[2017-06-20] MEDS: PANTOPRAZOLE 40 MG INJ IV SCH (18:49)
[2017-06-20 19:42] VITALS: BP 143/76; RESP 20
[2017-06-20] MEDS: BARIUM SULF 2% 450 ML BTL (BERRY SMOOTHIE) PO SCH ×2 (20:44→22:12)
[2017-06-20] MEDS: DIPHENHYDRAMINE 50 MG INJ IM PRN (20:51)
[2017-06-20] MEDS ORDERED: IOHEXOL 300MG/ML 150 ML BTL ONE (23:38)
[2017-06-20] MEDS ORDERED: SOD CHLORIDE 0.9% 100 ML ONE (23:38)
[2017-06-21] MEDS: ALBUTEROL/IPRATROPIUM (NEB) 3 ML AMP HHN SCH ×6 (00:26→21:00)
[2017-06-21] MEDS: HYDROmorphONE 2 MG/ML SYG IV PRN ×11 (00:44→23:30)
[2017-06-21] MEDS: SOD CHLORIDE 0.45% 1,000 ML IV SCH ×4 (03:04→20:39)
[2017-06-21] MEDS: VANCOMYCIN 1.25 GM in SOD CHLORIDE 0.9% 250 ML IVPB SCH ×2 (03:05→15:50)
--- NOTE | 2017-06-21 04:46 | RADRPT ---
PROCEDURE: CT Abdomen with and without contrast. CLINICAL INDICATION: Abdominal pain. TECHNIQUE: CT scan of the abdomen and pelvis with contrast was performed on a multi-detector high -resolution CT scanner. The patient was scanned before and after the uncomplicated administration o f 100 cc of Omnipaque-300 intravenous contrast. Coronal and sagittal reformatted images were obtain ed from the axial source images. Images were reviewed on a high-resolution PACS workstation. One or more of the following dose reduction techniques were used: - Automated exposure control. - Adjustment of the mA and/or kV according to patient size. - Use of iterative reconstruction technique. Exam CTD/vol = 28.99 mGy. Total exam DLP = 4038.65 mGy-cm. COMPARISON: None. FINDINGS: Evaluation of the lung bases demonstrates mild scarring within the lingula. Abdomen: The liver is normal in size and diffusely low in attenuation consistent with fatty infiltr ation. There is no focal mass or dilatation of the biliary tree. The patient is status post cholec ystectomy. The spleen, pancreas and bilateral adrenal glands are within normal limits. Bilateral k idneys are normal in size with symmetric enhancement. There is no radiopaque renal or ureteral calc ulus identified. There is a hyperdense lesion off of the upper pole of the left kidney measuring 1. 4 x 1.0 cm. There is a 1.0 cm hyperdense lesion off of the mid left kidney. There is no hydronephros is or hydroureter. There is no retroperitoneal adenopathy. The abdominal aorta is of normal calibe r. There is moderate retained stool within the colon. Oral contrast reaches the mid small bowel. There is no bowel obstruction or free air. A normal appendix is partially visualized. There is no diver ticulosis or diverticulitis. There is no ascites. Pelvis: The bladder is unremarkable. The prostate and seminal vesicles are within normal limits. There is no significant pelvic adenopathy or free fluid. Evaluation of the osseous structures demonstrates no suspicious lytic or blastic lesion. The patient is status post fixation of the right pelvis with plates and multiple screws. There is an intramedul rahel mayelin within the right femur. There is dysplasia of the right hip with erosion of the femoral hea d. IMPRESSION: Moderate retained stool within the colon. Fatty infiltration of the liver. Status post cholecystectomy. Small hyperdense left renal lesions could represent hemorrhagic or calcified cyst. Further evaluatio n can be made by ultrasound. Status post fixation of the right pelvis and femur. There is dysplasia of the right hip with erosion of the femoral head. .Margarito Hughes MD, Date Time Electronically viewed and signed by .Margarito Hughes MD, on 06/21/2017 04:45 .T/
[2017-06-21] MEDS: PANTOPRAZOLE 40 MG INJ IV SCH (05:16)
[2017-06-21] MEDS: DIPHENHYDRAMINE 50 MG INJ IM PRN (05:16)
[2017-06-21 07:57] VITALS: BP 123/67; RESP 18
[2017-06-21] MEDS: FOLIC ACID 1 MG TAB PO SCH (08:54)
[2017-06-21] MEDS: BISACODYL (EC) 5 MG TAB PO SCH (08:54)
[2017-06-21] MEDS: QUETIAPINE 100 MG TAB PO SCH ×2 (08:55→21:36)
[2017-06-21] MEDS: HYDROXYUREA 500 MG CAP PO SCH ×3 (08:55→21:35)
--- NOTE | 2017-06-21 10:37 | PN ---
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 No PE seen on imaging study. He is usually taken care of in [facility] but is here for family visit. The current episode may have been precipitated by bronchitis. He has been on Hydrea 1500 mg/d and gets transfusions a few times a year. 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 Full records are not available. 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 He is currently on a planned 8 week program of vancomycin. Other history includes morbid obesity, Hx of [place], pedal edema, DVT, bipolar disorder and GERD. Problems: Assessment/Plan No further transfusion presently suggested. Continue present program. Endoscopy is pending. n No hematemesis presently. Antibiotic for infected hip prosthesis continues. Subjective 24 Hr Interval Summary Free Text/Dictation Pt is sleeping comfortably. Exam/Review of Systems Vital Signs Vitals Vital Signs Date Time Temp Pulse Resp B/P Pulse Ox O2 Delivery O2 Flow Rate FiO2 06/21/17 08:37 21 06/21/17 07:57 97.6 94 18 123/67 99 06/18/17 22:48 6.0 06/18/17 18:01 Nasal Cannula Intake and Output 06/20/17 06/20/17 06/21/17 15:00 23:00 07:00 Intake Total 2000 ml 2890 ml 2600 ml Output Total 300 ml 2000 ml 2400 ml Balance 1700 ml 890 ml 200 ml Exam Pt is sleeping and comfortable appearing. Results Result Diagram: 06/20/17 0543 06/20/17 0543 Medications Medications Current Medications Ondansetron HCl (Zofran Inj) 4 mg Q6H PRN IV NAUSEA AND/OR VOMITING; Start 06/18/17 at 23:00 Acetaminophen (Tylenol Tab) 650 mg Q6H PRN PO PAIN LEVEL 1-3 OR FEVER; Start 06/18/17 at 23:00 Docusate Sodium (Colace) 100 mg Q12H PRN PO CONSTIPATION; Start 06/18/17 at 23: 00 Folic Acid (Folic Acid) 1 mg DAILY PO Last administered on 06/20/17 09:38; Admin Dose 1 MG; Start 06/19/17 at 09:00 Hydroxyurea (Hydrea) 500 mg TID PO Last administered on 06/20/17 20:47; Admin Dose 500 MG; Start 06/19/17 at 09:00 Quetiapine Fumarate (Seroquel) 400 mg BID PO Last administered on 06/20/17 20: 43; Admin Dose 400 MG; Start 06/19/17 at 09:00 Diphenhydramine HCl 50 mg 50 mg Q6H PRN IM ITCHING Last administered on 05:16; Admin Dose 50 MG; Start 06/19/17 at 00:00 Sodium Chloride 1,000 ml @ 125 mls/hr Q8H IV Last administered on 06/21/17 03 :04; Admin Dose 125 MLS/HR; Start 06/19/17 at 10:30 Vancomycin HCl/ Sodium Chloride (Vancocin/NS) 250 ml @ 83.333 mls/ hr Q12H IVPB Last administered on 06/21/17 03:05; Admin Dose 83.333 MLS/HR; Start 06/19/17 at 14:30 Diphenhydramine HCl (Benadryl) 50 mg Q4H PRN PO ITCHING Last administered on 19:17; Admin Dose 50 MG; Start 06/19/17 at 19:00 Bisacodyl (Dulcolax) 5 mg DAILY PO Last administered on 06/20/17 09:38; Admin Dose 5 MG; Start 06/20/17 at 09:00 Hydromorphone HCl (Dilaudid) 2 mg Q2H PRN IV PAIN LEVEL 7-10 Last administered on 06/21/17 09:55; Admin Dose 2 MG; Start 06/20/17 at 09:00 Pantoprazole (Protonix Iv) 40 mg BID@06,18 IV Last administered on 06/21/17 05 :16; Admin Dose 40 MG; Start 06/20/17 at 18:00 Miscellaneous Information (*Rx Drug Level Order Reminder*) VANCOMYCIN TROUGH AT 1330 ONCE ONCE XX ; Start 06/21/17 at 13:30; Stop 06/21/17 at 13:31 SUBHASH ZUÑIGA MD Jun 21, 2017 10:37
--- NOTE | 2017-06-21 11:37 | PN ---
Date/Time of Note Date/Time of Note DATE: 06/21/17 TIME: 11:34 Assessment/Plan VTE Prophylaxis VTE Prophylaxis Intervention: SCD's Lines/Catheters IV Catheter Type (from Nrsg): PICC Line Central line still needed: Yes Urinary Cath still in place: No Assessment/Plan Assessment/Plan 37 yo M with sickle cell with hematemesis, joint pains and SOB. Also diagnosed with hip AVN ~3 weeks ago and was told he needed 6-8 weeks of IV vanc #hematemesis: GI eval pending-->tentatively scheduled for EGD today -empiric BID PPI pending EGD #SOB: most likely URI -RVP -supportive care #hip AVN with ?infection: cont vanc -osh records requested #sickle cell with acute pain crisis -IVFs, cont current pain regimen -cont home hydroxurea -transfusions as per heme #h/o DVTs/PEs warranting lifelong ATC -no current DVT/PE on imaging -await GI eval before resuming ATC #renal lesion: check US Subjective 24 Hr Interval Summary Free Text/Dictation pain controlled Exam/Review of Systems Vital Signs Vitals Vital Signs Date Time Temp Pulse Resp B/P Pulse Ox O2 Delivery O2 Flow Rate FiO2 06/21/17 08:37 21 06/21/17 07:57 97.6 94 18 123/67 99 06/18/17 22:48 6.0 06/18/17 18:01 Nasal Cannula Intake and Output 06/20/17 06/20/17 06/21/17 15:00 23:00 07:00 Intake Total 2000 ml 2890 ml 2600 ml Output Total 300 ml 2000 ml 2400 ml Balance 1700 ml 890 ml 200 ml Exam nad resp nonlabored obese no rashes no edema abd CT ordered by GI with constipation, renal lesion Results Result Diagram: 06/21/17 0952 06/20/17 0543 Results 24 hrs Laboratory Tests Test 06/21/17 09:52 White Blood Count 5.4 Red Blood Count 3.31 L Hemoglobin 9.1 L Hematocrit 28.7 L Mean Corpuscular Volume 86.7 Mean Corpuscular Hemoglobin 27.5 L Mean Corpuscular Hemoglobin Concent 31.7 L Red Cell Distribution Width 17.7 H Platelet Count 270 Mean Platelet Volume 11.5 H Neutrophils % 65.8 Lymphocytes % 16.9 Monocytes % 8.6 Eosinophils % 8.3 H Basophils % 0.2 Nucleated Red Blood Cells % 0.0 Neutrophils # 3.6 Lymphocytes # 0.9 Monocytes # 0.5 Eosinophils # 0.5 Basophils # 0.0 Nucleated Red Blood Cells # 0.0 Absolute Reticulocyte Count 0.091 Percent Reticulocyte Count 2.8 H Medications Medications Current Medications Ondansetron HCl (Zofran Inj) 4 mg Q6H PRN IV NAUSEA AND/OR VOMITING; Start 06/18/17 at 23:00 Acetaminophen (Tylenol Tab) 650 mg Q6H PRN PO PAIN LEVEL 1-3 OR FEVER; Start 06/18/17 at 23:00 Docusate Sodium (Colace) 100 mg Q12H PRN PO CONSTIPATION; Start 06/18/17 at 23: 00 Folic Acid (Folic Acid) 1 mg DAILY PO Last administered on 06/20/17 09:38; Admin Dose 1 MG; Start 06/19/17 at 09:00 Hydroxyurea (Hydrea) 500 mg TID PO Last administered on 06/20/17 20:47; Admin Dose 500 MG; Start 06/19/17 at 09:00 Quetiapine Fumarate (Seroquel) 400 mg BID PO Last administered on 06/20/17 20: 43; Admin Dose 400 MG; Start 06/19/17 at 09:00 Diphenhydramine HCl 50 mg 50 mg Q6H PRN IM ITCHING Last administered on 05:16; Admin Dose 50 MG; Start 06/19/17 at 00:00 Sodium Chloride 1,000 ml @ 125 mls/hr Q8H IV Last administered on 06/21/17 03 :04; Admin Dose 125 MLS/HR; Start 06/19/17 at 10:30 Vancomycin HCl/ Sodium Chloride (Vancocin/NS) 250 ml @ 83.333 mls/ hr Q12H IVPB Last administered on 06/21/17 03:05; Admin Dose 83.333 MLS/HR; Start 06/19/17 at 14:30 Diphenhydramine HCl (Benadryl) 50 mg Q4H PRN PO ITCHING Last administered on 19:17; Admin Dose 50 MG; Start 06/19/17 at 19:00 Bisacodyl (Dulcolax) 5 mg DAILY PO Last administered on 06/20/17 09:38; Admin Dose 5 MG; Start 06/20/17 at 09:00 Hydromorphone HCl (Dilaudid) 2 mg Q2H PRN IV PAIN LEVEL 7-10 Last administered on 06/21/17 09:55; Admin Dose 2 MG; Start 06/20/17 at 09:00 Pantoprazole (Protonix Iv) 40 mg BID@,18 IV Last administered on 06/21/17 05 :16; Admin Dose 40 MG; Start 06/20/17 at 18:00 Miscellaneous Information (*Rx Drug Level Order Reminder*) VANCOMYCIN TROUGH AT 1330 ONCE ONCE XX ; Start 06/21/17 at 13:30; Stop 06/21/17 at 13:31 JAY YUEN MD Jun 21, 2017 11:37
--- NOTE | 2017-06-21 14:01 | PN ---
Date/Time of Note Date/Time of Note DATE: 06/21/17 TIME: 13:50 Assessment/Plan VTE Prophylaxis VTE Prophylaxis Intervention: SCD's Lines/Catheters [facility] PICC Line Central line still needed: Yes Urinary Cath still in place: No Assessment/Plan Chief Complaint/Hosp Course Assessment: Hematemesis R/O erosive gastritis versus PUD-exacerbated by anticoagulant therapy PATIENT REFUSED INTUBATION RECOMMENDED BY ANESTHESIOLOGIST FOR SAFE EGD Sickle cell anemia History of gastric ulcers Hip AVN Morbid obesity Drug-seeking behavior Plan: Empiric PPI therapy We will sign off and follow upon request Subjective: Course reviewed with nursing staff Patient interviewed and examined All labs, imaging and other results reviewed The patient was brought down for EGD. Patient was evaluated by Dr. Aldridge from anesthesia department who recommended intubation as patient is morbidly obese and high risk from the respiratory point of view Despite Dr. Aldridge and my attempts to reason with the patient emphatically refused to be intubated therefore procedure cannot be accomplished he understands the consequences Exam: General: well developed, well nourished, moderately obese, alert and oriented x3 , in no acute distress Skin: No lesions, no stigmata chronic liver disease, no evidence of bleeding diathesis Lymphatic: No palpable lymphadenopathy HEENT: No lesions Cardiovascular: Heart: Regular rate and rhythm, no murmurs, gallops or rubs. Peripheral pulses present within normal limits, no cyanosis, clubbing or edemas. No pulsatile abdominal mass Respiratory: Lungs clear to auscultation and percussion, no wheezing, no rubs Gastrointestinal and Liver: Abdomen: Soft, non tenderness, distended, no hernias , no masses, no organomegaly, no ascites, no guarding, no rebound tenderness, normoactive bowel sounds. Extremities: No cyanosis, clubbing, or edema. Diagnostic Studies: Available data and images were reviewed personally. See reports. Significant results and findings are addressed here or in the assessment and plan. Problems: Exam/Review of Systems Vital Signs Vitals Vital Signs Date Time Temp Pulse Resp B/P Pulse Ox O2 Delivery O2 Flow Rate FiO2 06/21/17 13:29 21 06/21/17 07:57 97.6 94 18 123/67 99 06/18/17 22:48 6.0 06/18/17 18:01 Nasal Cannula Intake and Output 06/20/17 06/20/17 06/21/17 15:00 23:00 07:00 Intake Total 2000 ml 2890 ml 2600 ml Output Total 300 ml 2000 ml 2400 ml Balance 1700 ml 890 ml 200 ml Results Result Diagram: 06/21/17 0952 06/20/17 0543 Results 24 hrs Laboratory Tests Test 06/21/17 09:52 White Blood Count 5.4 Red Blood Count 3.31 L Hemoglobin 9.1 L Hematocrit 28.7 L Mean Corpuscular Volume 86.7 Mean Corpuscular Hemoglobin 27.5 L Mean Corpuscular Hemoglobin Concent 31.7 L Red Cell Distribution Width 17.7 H Platelet Count 270 Mean Platelet Volume 11.5 H Neutrophils % 65.8 Lymphocytes % 16.9 Monocytes % 8.6 Eosinophils % 8.3 H Basophils % 0.2 Nucleated Red Blood Cells % 0.0 Neutrophils # 3.6 Lymphocytes # 0.9 Monocytes # 0.5 Eosinophils # 0.5 Basophils # 0.0 Nucleated Red Blood Cells # 0.0 Absolute Reticulocyte Count 0.091 Percent Reticulocyte Count 2.8 H Medications Medications Current Medications Ondansetron HCl (Zofran Inj) 4 mg Q6H PRN IV NAUSEA AND/OR VOMITING; Start 06/18/17 at 23:00 Acetaminophen (Tylenol Tab) 650 mg Q6H PRN PO PAIN LEVEL 1-3 OR FEVER; Start 06/18/17 at 23:00 Docusate Sodium (Colace) 100 mg Q12H PRN PO CONSTIPATION; Start 06/18/17 at 23: 00 Folic Acid (Folic Acid) 1 mg DAILY PO Last administered on 06/20/17 09:38; Admin Dose 1 MG; Start 06/19/17 at 09:00 Hydroxyurea (Hydrea) 500 mg TID PO Last administered on 06/20/17 20:47; Admin Dose 500 MG; Start 06/19/17 at 09:00 Quetiapine Fumarate (Seroquel) 400 mg BID PO Last administered on 06/20/17 20: 43; Admin Dose 400 MG; Start 06/19/17 at 09:00 Diphenhydramine HCl 50 mg 50 mg Q6H PRN IM ITCHING Last administered on 05:16; Admin Dose 50 MG; Start 06/19/17 at 00:00 Sodium Chloride 1,000 ml @ 125 mls/hr Q8H IV Last administered on 06/21/17 03 :04; Admin Dose 125 MLS/HR; Start 06/19/17 at 10:30 Vancomycin HCl/ Sodium Chloride (Vancocin/NS) 250 ml @ 83.333 mls/ hr Q12H IVPB Last administered on 06/21/17 03:05; Admin Dose 83.333 MLS/HR; Start 06/19/17 at 14:30 Diphenhydramine HCl (Benadryl) 50 mg Q4H PRN PO ITCHING Last administered on 19:17; Admin Dose 50 MG; Start 06/19/17 at 19:00 Bisacodyl (Dulcolax) 5 mg DAILY PO Last administered on 06/20/17 09:38; Admin Dose 5 MG; Start 06/20/17 at 09:00 Hydromorphone HCl (Dilaudid) 2 mg Q2H PRN IV PAIN LEVEL 7-10 Last administered on 06/21/17 12:53; Admin Dose 2 MG; Start 06/20/17 at 09:00 Pantoprazole (Protonix Iv) 40 mg BID@06,18 IV Last administered on 06/21/17 05 :16; Admin Dose 40 MG; Start 06/20/17 at 18:00 CAMRON ALTMAN MD Jun 21, 2017 14:00
[2017-06-21 14:32] VITALS: BP 144/93; RESP 18
--- NOTE | 2017-06-21 15:15 | CONS ---
Date/Time of Note Date/Time of Note DATE: 06/21/17 TIME: 15:14 Consult Date/Type/Reason Admit Date/Time Jun 18, 2017 at 19:31 Initial Consult Date 06/20/17 Type of Consultation: Pulmonary Ordering Provider: EV CARPIO Subjective No sign pain now. Objective Vital Signs Date Time Temp Pulse Resp B/P Pulse Ox O2 Delivery O2 Flow Rate FiO2 06/21/17 14:32 98.5 97 18 144/93 97 06/21/17 13:29 21 06/18/17 22:48 6.0 06/18/17 18:01 Nasal Cannula Intake and Output 06/20/17 06/20/17 06/21/17 15:00 23:00 07:00 Intake Total 2000 ml 2890 ml 2600 ml Output Total 300 ml 2000 ml 2400 ml Balance 1700 ml 890 ml 200 ml Exam HEENT: Neck supple; no JVD; no LAD CVS: RRR, S1 and S2 CHEST: Clear ABD: Soft, NT, + BS EXT: No c/c/e Results/Medications Result Diagram: 06/21/17 0952 06/20/17 0543 Results 24 hrs Laboratory Tests Test 06/21/17 09:52 White Blood Count 5.4 Red Blood Count 3.31 L Hemoglobin 9.1 L Hematocrit 28.7 L Mean Corpuscular Volume 86.7 Mean Corpuscular Hemoglobin 27.5 L Mean Corpuscular Hemoglobin Concent 31.7 L Red Cell Distribution Width 17.7 H Platelet Count 270 Mean Platelet Volume 11.5 H Neutrophils % 65.8 Lymphocytes % 16.9 Monocytes % 8.6 Eosinophils % 8.3 H Basophils % 0.2 Nucleated Red Blood Cells % 0.0 Neutrophils # 3.6 Lymphocytes # 0.9 Monocytes # 0.5 Eosinophils # 0.5 Basophils # 0.0 Nucleated Red Blood Cells # 0.0 Absolute Reticulocyte Count 0.091 Percent Reticulocyte Count 2.8 H Medications Current Medications Ondansetron HCl (Zofran Inj) 4 mg Q6H PRN IV NAUSEA AND/OR VOMITING; Start 06/18/17 at 23:00 Acetaminophen (Tylenol Tab) 650 mg Q6H PRN PO PAIN LEVEL 1-3 OR FEVER; Start 06/18/17 at 23:00 Docusate Sodium (Colace) 100 mg Q12H PRN PO CONSTIPATION; Start 06/18/17 at 23: 00 Folic Acid (Folic Acid) 1 mg DAILY PO Last administered on 06/20/17 09:38; Admin Dose 1 MG; Start 06/19/17 at 09:00 Hydroxyurea (Hydrea) 500 mg TID PO Last administered on 06/20/17 20:47; Admin Dose 500 MG; Start 06/19/17 at 09:00 Quetiapine Fumarate (Seroquel) 400 mg BID PO Last administered on 06/20/17 20: 43; Admin Dose 400 MG; Start 06/19/17 at 09:00 Diphenhydramine HCl 50 mg 50 mg Q6H PRN IM ITCHING Last administered on 05:16; Admin Dose 50 MG; Start 06/19/17 at 00:00 Sodium Chloride 1,000 ml @ 125 mls/hr Q8H IV Last administered on 06/21/17 03 :04; Admin Dose 125 MLS/HR; Start 06/19/17 at 10:30 Vancomycin HCl/ Sodium Chloride (Vancocin/NS) 250 ml @ 83.333 mls/ hr Q12H IVPB Last administered on 06/21/17 03:05; Admin Dose 83.333 MLS/HR; Start 06/19/17 at 14:30 Diphenhydramine HCl (Benadryl) 50 mg Q4H PRN PO ITCHING Last administered on 19:17; Admin Dose 50 MG; Start 06/19/17 at 19:00 Bisacodyl (Dulcolax) 5 mg DAILY PO Last administered on 06/20/17 09:38; Admin Dose 5 MG; Start 06/20/17 at 09:00 Hydromorphone HCl (Dilaudid) 2 mg Q2H PRN IV PAIN LEVEL 7-10 Last administered on 06/21/17 15:02; Admin Dose 2 MG; Start 06/20/17 at 09:00 Pantoprazole (Protonix Iv) 40 mg BID@06,18 IV Last administered on 06/21/17 05 :16; Admin Dose 40 MG; Start 06/20/17 at 18:00 Assessment/Plan Additional Assessment/Plan IMP: 1. Mild SC crisis 2. History of sickle cell anemia 3. Probable obstructive sleep apnea 4. Anemia secondary to above RECS: 1. Pain control; hydration, incentive spirometry CARL NEGRON MD Jun 21, 2017 15:15
--- NOTE | 2017-06-21 16:20 | OPPN ---
Date/Time of Note Date/Time of Note DATE: 06/21/17 TIME: 16:06 Event Note This patient was scheduled to have an endoscopy by Dr. Flores. I interviewed him in the PACU before the procedure. He was morbidly obese. He had CAD s/p stent placement x 2, and he had a history of stroke in 2013. He also had bipolar disorder and anxiety. In view of all these morbidities, I decided that he had to be intubated to secure the airway and had a general anesthesia during the procedure. The patient stated that he had several procdures done in the past. They were all under propofol sedation and had no problem. He insisted that the procdure need to be done under sedation. He refused to have a general endotracheal tube anesthesia even though I told him that it was decided this way for his safety. Dr. Flores also spoke to him, but he continue to refuse. He wanted to have a second opinion. Then Dr. Flores decided to postpone the procedure so that he could think about it. MAJOR MATIAS MD Jun 21, 2017 16:18
--- NOTE | 2017-06-21 16:41 | RADRPT ---
PROCEDURE: Renal US. CLINICAL INDICATION: Follow-up renal lesion on CT TECHNIQUE: Multiple sonographic images of the kidneys were obtained. The images were reviewed on a PACS workstation. COMPARISON: CT dated 06/20/2017 FINDINGS: The right kidney measures 10.1 cm. The left kidney measures 11.3 cm. There are no focal areas of abn ormal echogenicity. There is no evidence for obstructive uropathy. There is a hyperechoic lesion in lower pole of the left kidney, which measures up to 1.8. there is a hypoechoic mass in the mid pole of the left kidney, which measures up to 2.2 cm. IMPRESSION: Two renal masses correlate to the masses seen on recent CT abdomen/pelvis. However, findings are inc ompletely characterized by ultrasound as the do not have the classic sonographic appearance of cysts . Recommend correlation with CT or MRI with renal mass protocol. RPTAT: QQ Physician Kade Date Time Electronically viewed and signed by Physician Kade on 06/21/2017 16:41 /
[2017-06-21] MEDS: PANTOPRAZOLE (EC) 40 MG TAB PO SCH (18:11)
[2017-06-21] MEDS ORDERED: DIPHENHYDRAMINE 50 MG INJ IV ONE (21:00)
[2017-06-22] MEDS: ALBUTEROL/IPRATROPIUM (NEB) 3 ML AMP HHN SCH ×6 (01:00→21:03)
[2017-06-22] MEDS: HYDROmorphONE 2 MG/ML SYG IV PRN ×12 (01:23→22:28)
[2017-06-22] MEDS: SOD CHLORIDE 0.45% 1,000 ML IV SCH ×4 (02:30→18:11)
[2017-06-22] MEDS: VANCOMYCIN 1.5 GM in SOD CHLORIDE 0.9% 250 ML IVPB SCH ×2 (04:33→16:37)
[2017-06-22] MEDS: PANTOPRAZOLE (EC) 40 MG TAB PO SCH ×2 (06:23→16:37)
[2017-06-22 07:48] VITALS: BP 128/60; RESP 18
[2017-06-22] MEDS: FOLIC ACID 1 MG TAB PO SCH (08:24)
[2017-06-22] MEDS: QUETIAPINE 100 MG TAB PO SCH ×2 (08:25→20:29)
[2017-06-22] MEDS: BISACODYL (EC) 5 MG TAB PO SCH (08:25)
[2017-06-22] MEDS: HYDROXYUREA 500 MG CAP PO SCH ×3 (08:29→20:34)
--- NOTE | 2017-06-22 10:38 | PN ---
Date/Time of Note Date/Time of Note DATE: 06/22/17 TIME: 10:35 Assessment/Plan VTE Prophylaxis VTE Prophylaxis Intervention: other (per primary MD) Lines/Catheters IV Catheter Type (from Nrsg): PICC Line Central line still needed: Yes Urinary Cath still in place: No Assessment/Plan Chief Complaint/Hosp Course 37 yo man with life long history of sickle cell disease and who is now admitted for crisis with chest pain. No PE seen on imaging study. He is usually taken care of in [facility] but is here for family visit. The current episode may have been precipitated by bronchitis. He has been on Hydrea 1500 mg/d and gets transfusions a few times a year. 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 Full records are not available. 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 He is currently on a planned 8 week program of vancomycin. Other history includes morbid obesity, Hx of [place], pedal edema, DVT, bipolar disorder and GERD. 06/22: Pt asking for IV rather than PO Benadryl but I did not order that and would encourage PO meds and trying to ambulate more. No further blood transfusions now. Continue Hydrea and folic acid. Problems: Subjective 24 Hr Interval Summary Free Text/Dictation Pt stable. Watching football on TV Exam/Review of Systems Vital Signs Vitals Vital Signs Date Time Temp Pulse Resp B/P Pulse Ox O2 Delivery O2 Flow Rate FiO2 06/22/17 07:48 98.2 82 18 128/60 97 06/22/17 04:21 21 06/18/17 22:48 6.0 06/18/17 18:01 Nasal Cannula Intake and Output 06/21/17 06/21/17 06/22/17 15:00 23:00 07:00 Intake Total 1320 ml 1925 ml Output Total 4450 ml 2300 ml Balance -3130 ml -375 ml Exam Constitutional: alert, obese, oriented Head: normocephalic Eyes: other (pallor) ENMT: nl external ears & nose Neck: supple Respiratory: clear to auscultation Cardiovascular: regular rate and rhythm Gastrointestinal: non-tender, soft Results Result Diagram: 06/21/17 0952 06/20/17 0543 Results 24 hrs Laboratory Tests Test 06/21/17 14:27 Vancomycin Level Trough 9.4 L Medications Medications Current Medications Ondansetron HCl (Zofran Inj) 4 mg Q6H PRN IV NAUSEA AND/OR VOMITING; Start 06/18/17 at 23:00 Acetaminophen (Tylenol Tab) 650 mg Q6H PRN PO PAIN LEVEL 1-3 OR FEVER; Start 06/18/17 at 23:00 Docusate Sodium (Colace) 100 mg Q12H PRN PO CONSTIPATION; Start 06/18/17 at 23: 00 Folic Acid (Folic Acid) 1 mg DAILY PO Last administered on 06/22/17 08:24; Admin Dose 1 MG; Start 06/19/17 at 09:00 Hydroxyurea (Hydrea) 500 mg TID PO Last administered on 06/22/17 08:29; Admin Dose 500 MG; Start 06/19/17 at 09:00 Quetiapine Fumarate (Seroquel) 400 mg BID PO Last administered on 06/22/17 08: 25; Admin Dose 400 MG; Start 06/19/17 at 09:00 Diphenhydramine HCl 50 mg 50 mg Q6H PRN IM ITCHING Last administered on 05:16; Admin Dose 50 MG; Start 06/19/17 at 00:00 Sodium Chloride (1/2 NS) 1,000 ml @ 125 mls/hr Q8H IV Last administered on 03:39; Admin Dose 125 MLS/HR; Start 06/19/17 at 10:30 Diphenhydramine HCl (Benadryl) 50 mg Q4H PRN PO ITCHING Last administered on 19:17; Admin Dose 50 MG; Start 06/19/17 at 19:00 Bisacodyl (Dulcolax) 5 mg DAILY PO Last administered on 06/20/17 09:38; Admin Dose 5 MG; Start 06/20/17 at 09:00 Hydromorphone HCl (Dilaudid) 2 mg Q2H PRN IV PAIN LEVEL 7-10 Last administered on 06/22/17 10:26; Admin Dose 2 MG; Start 06/20/17 at 09:00 Pantoprazole 40 mg 40 mg BID@06,18 PO Last administered on 06/22/17 06:23; Admin Dose 40 MG; Start 11/4/17 at 18:00 Vancomycin HCl/ Sodium Chloride (Vancocin/NS) 250 ml @ 83.333 mls/ hr Q12H IVPB Last administered on 06/22/17t 04:33; Admin Dose 83.333 MLS/HR; Start 06/22/17 at 05:00 SUBHASH ZUÑIGA MD Jun 22, 2017 10:38
[2017-06-22 14:18] VITALS: BP 112/62; RESP 18
--- NOTE | 2017-06-22 15:11 | CONS ---
Date/Time of Note Date/Time of Note DATE: 06/22/17 TIME: 15:10 Consult Date/Type/Reason Admit Date/Time Jun 18, 2017 at 19:31 Initial Consult Date 06/20/17 Type of Consultation: Pulmonary Ordering Provider: EV CARPIO Subjective No events. Refused endoscopy yesterday. Objective Vital Signs Date Time Temp Pulse Resp B/P Pulse Ox O2 Delivery O2 Flow Rate FiO2 06/22/17 14:18 98.2 98 18 112/62 99 06/22/17 14:14 21 06/18/17 22:48 6.0 06/18/17 18:01 Nasal Cannula Intake and Output 06/21/17 06/21/17 06/22/17 15:00 23:00 07:00 Intake Total 1320 ml 1925 ml Output Total 4450 ml 2300 ml Balance -3130 ml -375 ml Exam HEENT: Neck supple; no JVD; no LAD CVS: RRR, S1 and S2 CHEST: Clear ABD: Obese, NT, + BS EXT: No c/c/e Results/Medications Result Diagram: 06/21/17 0952 06/20/17 0543 Medications Current Medications Ondansetron HCl (Zofran Inj) 4 mg Q6H PRN IV NAUSEA AND/OR VOMITING; Start 06/18/17 at 23:00 Acetaminophen (Tylenol Tab) 650 mg Q6H PRN PO PAIN LEVEL 1-3 OR FEVER; Start 06/18/17 at 23:00 Docusate Sodium (Colace) 100 mg Q12H PRN PO CONSTIPATION; Start 06/18/17 at 23: 00 Folic Acid (Folic Acid) 1 mg DAILY PO Last administered on 06/22/17 08:24; Admin Dose 1 MG; Start 06/19/17 at 09:00 Hydroxyurea (Hydrea) 500 mg TID PO Last administered on 06/22/17 12:40; Admin Dose 500 MG; Start 06/19/17 at 09:00 Quetiapine Fumarate (Seroquel) 400 mg BID PO Last administered on 06/22/17 08: 25; Admin Dose 400 MG; Start 06/19/17 at 09:00 Diphenhydramine HCl 50 mg 50 mg Q6H PRN IM ITCHING Last administered on 05:16; Admin Dose 50 MG; Start 06/19/17 at 00:00 Sodium Chloride (1/2 NS) 1,000 ml @ 125 mls/hr Q8H IV Last administered on 13:52; Admin Dose 125 MLS/HR; Start 06/19/17 at 10:30 Diphenhydramine HCl (Benadryl) 50 mg Q4H PRN PO ITCHING Last administered on 19:17; Admin Dose 50 MG; Start 06/19/17 at 19:00 Bisacodyl (Dulcolax) 5 mg DAILY PO Last administered on 06/20/17 09:38; Admin Dose 5 MG; Start 06/20/17 at 09:00 Hydromorphone HCl (Dilaudid) 2 mg Q2H PRN IV PAIN LEVEL 7-10 Last administered on 06/22/17 14:32; Admin Dose 2 MG; Start 06/20/17 at 09:00 Pantoprazole 40 mg 40 mg BID@06,18 PO Last administered on 06/22/17 06:23; Admin Dose 40 MG; Start 06/21/17 at 18:00 Vancomycin HCl/ Sodium Chloride (Vancocin/NS) 250 ml @ 83.333 mls/ hr Q12H IVPB Last administered on 06/22/17 04:33; Admin Dose 83.333 MLS/HR; Start 06/22/17 at 05:00 Assessment/Plan Additional Assessment/Plan IMP: 1. Mild SC crisis 2. Sickle cell anemia 3. Probable obstructive sleep apnea RECS: 1. Pain control; hydration, incentive spirometry 2. OOB/PT/OT CARL NEGRON MD Jun 22, 2017 15:11
--- NOTE | 2017-06-22 16:43 | PN ---
Date/Time of Note Date/Time of Note DATE: 06/22/17 TIME: 16:34 Assessment/Plan VTE Prophylaxis VTE Prophylaxis Intervention: SCD's Lines/Catheters IV Catheter Type (from Nrsg): PICC Line Central line still needed: Yes Urinary Cath still in place: No Assessment/Plan Assessment/Plan 37 yo M with sickle cell with hematemesis, joint pains and SOB. Also diagnosed with hip AVN ~3 weeks ago and was told he needed 6-8 weeks of IV vanc #hematemesis: GI eval pending-->pt refused EGD Friday taking he did not want to be intubated. 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, will dw GI possibly anesthesia Friday -empiric BID PPI pending EGD -also consider talking to heme (already on consult) about risk/benefit of ATC for this patient #SOB: most likely URI -RVP ordered -supportive care #hip AVN with ?infection: cont vanc -osh records requested #sickle cell with acute pain crisis -IVFs, cont current pain regimen -cont home hydroxurea -transfusions as per heme -pain management consult #h/o DVTs/PEs warranting lifelong ATC -no current DVT/PE on imaging -await GI or heme eval before resuming ATC #renal lesion: US nondiagnostic -CT ordered Subjective 24 Hr Interval Summary Free Text/Dictation wants pain pills in addition to IV pain meds Exam/Review of Systems Vital Signs Vitals Vital Signs Date Time Temp Pulse Resp B/P Pulse Ox O2 Delivery O2 Flow Rate FiO2 06/22/17 14:18 98.2 98 18 112/62 99 06/22/17 14:14 21 06/18/17 22:48 6.0 06/18/17 18:01 Nasal Cannula Intake and Output 06/21/17 06/21/17 06/22/17 15:00 23:00 07:00 Intake Total 1320 ml 1925 ml Output Total 4450 ml 2300 ml Balance -3130 ml -375 ml Exam nad no mrg lungs clear abd soft no rashes Results Result Diagram: 06/21/17 0952 06/20/17 0543 Medications Medications Current Medications Ondansetron HCl (Zofran Inj) 4 mg Q6H PRN IV NAUSEA AND/OR VOMITING; Start 06/18/17 at 23:00 Acetaminophen (Tylenol Tab) 650 mg Q6H PRN PO PAIN LEVEL 1-3 OR FEVER; Start 06/18/17 at 23:00 Docusate Sodium (Colace) 100 mg Q12H PRN PO CONSTIPATION; Start 06/18/17 at 23: 00 Folic Acid (Folic Acid) 1 mg DAILY PO Last administered on 06/22/17 08:24; Admin Dose 1 MG; Start 06/19/17 at 09:00 Hydroxyurea (Hydrea) 500 mg TID PO Last administered on 06/22/17 12:40; Admin Dose 500 MG; Start 06/19/17 at 09:00 Quetiapine Fumarate (Seroquel) 400 mg BID PO Last administered on 06/22/17 08: 25; Admin Dose 400 MG; Start 06/19/17 at 09:00 Diphenhydramine HCl 50 mg 50 mg Q6H PRN IM ITCHING Last administered on 05:16; Admin Dose 50 MG; Start 06/19/17 at 00:00 Sodium Chloride (1/2 NS) 1,000 ml @ 125 mls/hr Q8H IV Last administered on 13:52; Admin Dose 125 MLS/HR; Start 06/19/17 at 10:30 Diphenhydramine HCl (Benadryl) 50 mg Q4H PRN PO ITCHING Last administered on 19:17; Admin Dose 50 MG; Start 06/19/17 at 19:00 Bisacodyl (Dulcolax) 5 mg DAILY PO Last administered on 06/20/17 09:38; Admin Dose 5 MG; Start 06/20/17 at 09:00 Hydromorphone HCl (Dilaudid) 2 mg Q2H PRN IV PAIN LEVEL 7-10 Last administered on 06/22/17 16:33; Admin Dose 2 MG; Start 06/20/17 at 09:00 Pantoprazole 40 mg 40 mg BID@06,18 PO Last administered on 06/22/17 06:23; Admin Dose 40 MG; Start 06/21/17 at 18:00 Vancomycin HCl/ Sodium Chloride (Vancocin/NS) 250 ml @ 83.333 mls/ hr Q12H IVPB Last administered on 11/5/17at 04:33; Admin Dose 83.333 MLS/HR; Start 06/22/17 at 05:00 JAY YUEN MD Jun 22, 2017 16:43
[2017-06-22 19:47] VITALS: BP 126/70; RESP 19
[2017-06-22] MEDS ORDERED: DIPHENHYDRAMINE 50 MG INJ IV ONE (20:00)
[2017-06-23] MEDS: HYDROmorphONE 2 MG/ML SYG IV PRN ×7 (00:32→12:57)
[2017-06-23] MEDS: ALBUTEROL/IPRATROPIUM (NEB) 3 ML AMP HHN SCH ×4 (01:00→12:04)
[2017-06-23] MEDS: SOD CHLORIDE 0.45% 1,000 ML IV SCH ×2 (02:26→10:30)
[2017-06-23] MEDS: VANCOMYCIN 1.5 GM in SOD CHLORIDE 0.9% 250 ML IVPB SCH (04:28)
[2017-06-23] MEDS: PANTOPRAZOLE (EC) 40 MG TAB PO SCH (06:35)
[2017-06-23] MEDS: FOLIC ACID 1 MG TAB PO SCH (08:40)
[2017-06-23] MEDS: QUETIAPINE 100 MG TAB PO SCH (08:40)
[2017-06-23] MEDS: HYDROXYUREA 500 MG CAP PO SCH ×2 (08:46→13:06)
[2017-06-23] MEDS: BISACODYL (EC) 5 MG TAB PO SCH (08:47)
[2017-06-23 09:10] VITALS: BP 117/75; PULSE 89; RESP 18
--- NOTE | 2017-06-23 12:29 | PDOCDIS ---
Discharge Instructions CONDITION Patient Condition: Stable HOME CARE INSTRUCTIONS: Special Diet: 1800 ruthy, 2gr NA ACTIVITY: Activity Restrictions: Slowly Increase Activity FOLLOW UP/APPOINTMENTS Follow-up Plan Please take your medications as prescribed, and see your doctor in the clinic in 1 week. ALBERT BECK Jun 23, 2017 12:29
[2017-06-23 12:40] VITALS: BP 110/63; PULSE 82; RESP 18
--- NOTE | 2017-06-24 03:04 | DS ---
DATE OF ADMISSION: 06/18/2017 DATE OF DISCHARGE: 06/23/2017 HOSPITAL COURSE: This is a 37-year-old male, originally admitted on June 18, 2017, being discharged home on June 23, 2017. The patient came in with chest pain and joint pain and also shortness of breath. He has a prior history of sickle cell disease and was admitted, seen by GI and hematology/oncology teams during this hospital stay. Patient had hematemesis and as well was evaluated by GI team but he refused EGD as he did not want to be intubated, which was the recommendation from the anesthesiology and GI team. His hematemesis resolved in the meantime, and his hemoglobin remained stable. Regarding his sickle cell, he was also seen by hem/onc team and pulmonary team. As he has a prior history of obstructive sleep apnea, he was given incentive spirometer p.r.n. and hem/onc team just recommended continuing patient on folic acid, and hydroxyurea, as well as pain control medications. Over the course hospital stay, his pain control symptoms slowly improved. He was able to ambulate with assistance, tolerated a p.o. diet, and again, his symptoms have improved. He will be discharged home today in improved condition. DISCHARGE MEDICATIONS: He will be sent with the following medications: 1. Lillie 10/325, 1 tab p.o. every 6 hours p.r.n. 2. Aspirin 81 mg daily. 3. Atorvastatin 20 mg nightly. 4. Plavix 75 mg daily. 5. Folic acid 1 mg daily. 6. Hydroxyurea 500 mg t.i.d. 7. OxyContin 40 mg q.12 hours. 8. Seroquel 400 mg b.i.d. 9. Warfarin 10 mg daily. FOLLOWUP: Continue to follow up with his regular doctor in the clinic in the next 1 week. He does get his care up in [facility] states and was recently placed on IV vancomycin 6 weeks ago for possible avascular necrosis of the hip and he has a followup appointment with those doctors in the next few days up in [place]. FINAL DIAGNOSES: 1. Joint pain, likely secondary to mild sickle cell crisis, improved now on hydroxyurea and folic acid. 2. Hematemesis, resolved, but patient refused esophagogastroduodenoscopy this admission. 3. Shortness of breath, likely secondary to obstructive sleep apnea, now status post incentive spirometer, improved. 4. History of hip avascular necrosis, on antibiotics, setup as outpatient. 5. History of prior deep venous thrombosis and pulmonary emboli, continuing on warfarin. 6. Prior myocardial infarction. 7. History of renal lesion with ultrasound nondiagnostic. Recommend follow up with primary care doctor in the next 3-6 months with repeat imaging at that time, recommended. TIME SPENT: 60 minutes. Dictated By: Ezekiel Carroll MD /sergio/cheri /Document#: [id number]
--- NOTE | 2017-06-24 07:47 | PN ---
DATE: 06/23/2017 HEMATOLOGY PROGRESS NOTE Mr. Jorge has refused his upper GI endoscopy. There are no new findings. The patient's pain seems relatively well controlled. The patient is to be discharged today. There are no new hematologic recommendations. Dictated By: OMAR JAMES MD SR/NTS Conf#: [id number] DID#: [id number] CC: ANGÉLICA PHILLIPS;*EndCC*
--- NOTE | 2017-06-24 07:47 | PN ---
DATE: 06/23/2017 HEMATOLOGY PROGRESS NOTE Mr. Jorge has refused his upper GI endoscopy. There are no new findings. The patient's pain seems relatively well controlled. The patient is to be discharged today. There are no new hematologic recommendations. Dictated By: OMAR JAMES MD SR/NTS Conf#: [id number] DID#: [id number] CC: ANGÉLICA PHILLIPS;*EndCC*
== END 2017-06-23 13:00 | disposition home or self-care (01) | DRG 812 ==
LOC: E/R 14:42 → MS4 19:31 → MS2 06-19 22:15
PROVIDERS: ADMIT Internal Medicine; ATTEND Internal Medicine
PROC: 30233N1 Transfusion of Nonautologous Red Blood Cells into Peripheral Vein, Percutaneous Approach (ICD-10-PCS; principal; 2017-06-19)
DX: D57.00 Hb-SS disease with crisis, unspecified (principal); K92.0 Hematemesis; Z68.42 Body mass index [BMI] 45.0-49.9, adult; M87.9 Osteonecrosis, unspecified; E66.01 Morbid (severe) obesity due to excess calories; G47.33 Obstructive sleep apnea (adult) (pediatric); I25.2 Old myocardial infarction; F31.9 Bipolar disorder, unspecified; I25.10 Atherosclerotic heart disease of native coronary artery without angina pectoris; Z86.711 Personal history of pulmonary embolism; Z86.718 Personal history of other venous thrombosis and embolism
CPT/HCPCS: 36415; 36430; 36600; 71010; 71020; 71275; 74178; 76775; 80053; 80202; 80307; 81003; 82550; 82553; 82728; 82803; 83020; 83036; 83540; 83605; 83615; 83735; 83880; 84100; 84443; 84484; 85025; 85045; 85610; 85660; 85730; 86850; 86900; 86901; 86920; 87040; 87086; 87275; 87276; 87279; 87280; 93005; 93306; 93970; 94640; 94644; 94645; 94664; 96374; 96375; 96376; C9113; J0456; J0696; J1170; J1200; J2405; J3370; J7030; J7040; J7050; P9016; Q9967